=== PATIENT | male | born 1990 | race Caucasian/White ===

== ENCOUNTER 2023-08-11 11:50 | Emergency (ER) | payer BC, SELFPAY ==
[2023-08-11 11:55] VITALS: BP 145/77; PULSE 71; RESP 18; TEMP 36.2; O2SAT 99; BMI 26.4
--- NOTE | 2023-08-11 12:09 | ED.DENTAL1 ---
HPI - Dental/Oral General Chief complaint: Dental/Oral Stated complaint: MOUTH/TOOTH PAIN Time Seen by Provider: 08/11/23 12:06 Source: patient Mode of arrival: walk-in History of Present Illness HPI Narrative: This patient is here complaining of dental pain on his lower left premolar. 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 Fortunately he just got health care benefits and is going to start having all of his teeth extracted. He cannot afford to have all done but he is going to start getting 1 done at a time as cost benefits allow. He is not running a fever. He is otherwise healthy. He is not on any antibiotics. He is not having any difficulty swallowing. There is no swelling of his face yet. He is otherwise no complaints Related Data Home Medications Medication Instructions Recorded Confirmed No Known Home Medications 08/11/23 08/11/23 Allergies Allergy/AdvReac Type Severity Reaction Status Date / Time No Known Drug Allergies Allergy Verified 08/11/23 11:58 PFSH PFSH Social History Smoking status: Current every day smoker Exam Narrative Exam Narrative: Very pleasant young man but has extensive periodontal disease of the upper and lower mandibular and maxillary area. There is no facial swelling. Cranial nerves II through XII are normal. There is no difficulty speech or swallowing. There is no swelling of the floor the mouth. The tooth that is uncomfortable right now is his lower left mandibular premolar. There is no pointing abscess at this time. Constitutional Vital Signs, click to edit/add: Last Vital Signs Temp 97.1 F L 08/11/23 11:55 Pulse 71 08/11/23 11:55 Resp 18 08/11/23 11:55 BP 145/77 H 08/11/23 11:55 Pulse Ox 99 08/11/23 11:55 O2 Del Method Room Air 08/11/23 11:55 Course Vital Signs Vital signs: Vital Signs Temperature 97.1 F L 08/11/23 11:55 Pulse Rate 71 08/11/23 11:55 Respiratory Rate 18 08/11/23 11:55 Blood Pressure 145/77 H 08/11/23 11:55 Pulse Oximetry 99 08/11/23 11:55 Oxygen Delivery Method Room Air 08/11/23 11:55 Temperature 97.1 F L 08/11/23 11:55 Pulse Rate 71 08/11/23 11:55 Respiratory Rate 18 08/11/23 11:55 Blood Pressure 145/77 H 08/11/23 11:55 Pulse Oximetry 99 08/11/23 11:55 Oxygen Delivery Method Room Air 08/11/23 11:55 MDM - Dental/Oral MDM Narrative Medical decision making narrative: Patient with extensive chronic dental problems with 1 tooth that is particularly problematic. Will start him on penicillin dental analgesia and alternate Tylenol with ibuprofen. I will give him a limited dose of [place] he has to follow-up with his dentist to soon as possible Discharge Plan Discharge Chief Complaint: Dental/Oral Clinical Impression: Tooth ache Patient Disposition: Home, Self-Care Time of Disposition Decision: 12:11 Prescriptions / Home Meds: No Action No Known Home Medications Additional Instructions: Pen-Vee K/[place]/alternate with ibuprofen/see dentist NICHOLAS Referrals: Physician,Non-Staff, MD [Primary Care Provider] - 1 week Stand Alone Forms: Portal Instructions
[2023-08-11] MEDS: BENZOCAINE 30 ML, lidocaine HCL 15 ML MM (12:18)
== END 2023-08-11 12:22 | disposition home or self-care (01) ==
PROVIDERS: Emergency Provider Emergency Medicine Emergency Medical Services
DX: K08.89 Other specified disorders of teeth and supporting structures (principal); F17.210 Nicotine dependence, cigarettes, uncomplicated
CPT/HCPCS: 99282

== ENCOUNTER 2024-01-09 04:45 | Emergency (ER) | payer SELFPAY ==
[2024-01-09 04:48] VITALS: BP 126/80; PULSE 67; TEMP 37.1; O2SAT 99
--- OUTSIDE RECORDS SUMMARY | 2024-01-09 04:50 | XMS_ITS ---
Patient Summarization (C-CDA 2.1 CCD) Created on: January 09, 2024 BERNABE CANALES : 1990 Sex: Undifferentiated Author Organization Sample organization Care Team Providers Care Computer Aided Design Drafter Name Role Phone DR JUDY SANCHEZ Primary Care Unavailable MARY ORLANDO Attending Unavailable MARY ORLANDO Consulting Unavailable MARY ORLANDO Admitting Unavailable CORINA PALACIOS Unavailable NO PCP, NO PCP Primary Care Unavailable NAHID GERMAIN Attending Unavailable NO PCP, NO PCP Primary Care Unavailable Encounters Encounter Date Encounter Type Care Provider Facility Start: 11-19-2023 End: 11-19-2023 Emergency department patient visit NO PCP NO PCP [facility] Start: 10-03-2023 End: 10-03-2023 Emergency department patient visit NO PCP NO PCP [facility] Start: 05-23-2022 End: 05-23-[address] DOCTOR SANCHEZ Facility: Payers Date Payer Category Payer Unknown [id number] 1990 Unknown [id number] 1990 Unknown [id number] 1990 Unknown [id number] 1960 Self-pay [id number] Problems Problem Classification Problem Date Documented Da te Episodic/Chronic Nausea and vomiting (2 sources) Vomiting without nausea; Translations: [Vomiting] Onset: 11-19-2023 Episodic Nonspecific chest pain (3 sources) Chest pain, unspecified; Translations: [CHEST PAIN UNSPECIFIED] Onset: 05-23-2022 Episodic Other upper respiratory infections (1 source) Acute upper respiratory infection, unspecified; Translations: [Acute upper respiratory infection, unspecified] Onset: 10-03-2023 Episodic Pleurisy; pneumothorax; pulmonary collapse (1 source) Pleurisy; Translations: [PLEURISY] Onset: 05-26-2022 Episodic Substance-related disorders (1 source) Nicotine dependence, cigarettes, uncomplicated; Translations: [NICOTINE DEPEND CIGARETTES UNCOMP] Onset: 05-26-2022 Chronic Unclassified (1 source) CONTACT W/AND (SUSP) EXPOS COVID-19; Translations: [CONTACT W/AND (SUSP) EXPOS COVID-19] Onset: 05-26-2022 Unclassified (1 source) Cold Like Symptoms Onset: 10-03-2023 Unclassified (1 source) runny nose, cough, diarrhea Onset: 10-03-2023 Results Test Name Value Interpretation Reference Range Facil ity RAPID STREP SCR NURSINGon S. pyogenes Ag EIA Ql (Throat) Negative Normal NEG [facility] Comment on above: Performed By: #### 6 [id number] #### [facility] ([id number]) [address] [place] [id number] RAPID STREP SCR NURSINGon S. pyogenes Ag EIA Ql (Throat) Negative Normal NEG [facility] Comment on above: Performed By: #### 6 [id number] #### [facility] ([id number]) [address] [place] [id number] SARS/FLU A+B/RSV by NAAT/Mol ecularon 10-03-2023 SARS/FLU A+B/RSV by NAAT/Molecular FLU A PCR Negative (qualifier value) FLU B PCR Negative (qualifier value) RSV by PCR Negative (qualifier value) SARS CoV 2 Not detected (qualifier value) NOTE The Xpert Xpress SARS-CoV-2/Flu/RSV Plus test is a rapid, multiplexed real-time RT-PCR test intended for the simultaneous qualitative detection and differentiation of SARS-CoV-2, influenza A, influenza B and respiratory syncytial virus (RSV) viral RNA from individuals suspected of respiratory viral infection consistent with COVID-19 by their healthcare provider. This test has not been validated in asymptomatic patients. The Xpert Xpress SARS-CoV-2 test is intended for use by qualified and trained operators who are performing tests using either [employer] or [employer] systems and is limited to laboratories that meet the CLIA requirements to perform high and moderate complexity tests. The Xpert Xpress SARS-CoV-2/Flu/RSV Plus is only for use under the Food and Drug Administration's Emergency Use Authorization. Results are for the simultaneous detection and differentiation of SARS-CoV-2, influenza A, influenza B and RSV nucleic acids in clinical specimens. SARS-CoV-2, influenza A, influenza B and RSV RNA identified by this test are generally detectable in upper respiratory samples during the acute phase of infection. Positive results are indicative of the presence of the identified virus, but do not rule out bacterial infection or co-infection with other pathogens not detected by this test. Clinical correlation with patient history and other diagnostic information is necessary to determine patient infection status. The agent detected may not be the definite cause of disease. Negative results do not preclude SARS-CoV-2, influenza A, influenza B and RSV infection and should not be used as the sole basis for treatment or other patient management decisions. Negative results must be combined with clinical observations, patient history and epidemiological information. An Invalid result may occur with specimen-associated inhibition unable to be resolved with specimen repeat. Fact Sheet for Healthcare Providers: https://www.fda.gov/m edia/496223/download Fact Sheet for Patients: https://www.fda.gov/m edia/739667/download Normal [facility] Comment on above: Performed By: #### C OVFLR #### [facility] ([id number]) [address] [place] [address], [place] [address] CARDIAC NAZARIO 3-6on 2 CK [Catalytic activity/Vol] 79 U/L Normal 39-308 [facility] Comment on above: Performed By: #### C MREP #### [facility] [address] [place] [id number] [address] Samreen Vo CK.MB [Mass/Vol] 0.51 ng/mL Normal <=3.60 [facility] Comment on above: Performed By: #### C MREP #### [facility] [address] [place], [place] [address] Dr. Samreen Vo HSTROP 4.5 pg/mL Normal 4.0-76.1 [facility] Comment on above: Result Comment: CUT- OFF POINTS HAVE BEEN ESTABLISHED BASED ON THE FOURTH UNIVERSAL DEFINITIONS OF MYOCARDIAL INFARCTION. THE UPPER REFERENCE LIMIT (URL) OF TROPONIN, DEFINED THE 99TH PERCENTILE OF cTnI DISTRIBUTION IN A REFERENCE POPULATION, HAS BEEN CONFIRMED THE DECISION THRESHOLD FOR MA DIAGNOSIS. Performed By: #### C MREP #### [facility] [address] [place] [address] Dr. Samreen Vo CARDIAC NAZARIO ADMITon 022 CK [Catalytic activity/Vol] 85 U/L Normal 39-308 [facility] Comment on above: Performed By: #### C MADM, BMP #### [facility] [address] [place] [address] Dr. Samreen Vo CK.MB [Mass/Vol] 0.57 ng/mL Normal <=3.60 [facility] Comment on above: Performed By: #### C CARLITAM, BMP #### [facility] [address] [place] [address] Dr. Samreen Vo HSTROP <4.0 Normal 4.0-76.1 [facility] Comment on above: Result Comment: CUT- OFF POINTS HAVE BEEN ESTABLISHED BASED ON THE FOURTH UNIVERSAL DEFINITIONS OF MYOCARDIAL INFARCTION. THE UPPER REFERENCE LIMIT (URL) OF TROPONIN, DEFINED THE 99TH PERCENTILE OF cTnI DISTRIBUTION IN A REFERENCE POPULATION, HAS BEEN CONFIRMED THE DECISION THRESHOLD FOR MA DIAGNOSIS. Performed By: #### C MADM, BMP #### [facility] [address] [place] [address] Dr. Samreen Vo ARUN 24 ng/mL Normal 16-96 [facility] Comment on above: Performed By: #### C MADM, BMP #### [facility] [address] [place] [address] Dr. Samreen Vo CBC AUTO DIFFon 05-23-2022 BASO # 0.0 103/ul Normal 0.0-0.1 [facility] Comment on above: Performed By: #### C BC #### [facility] [address] [place] [address] Dr. Samreen Vo Basophils/100 WBC (Bld) 0.5 % Normal 0.2-2.0 [facility] Comment on above: Performed By: #### C BC #### [facility] [address] [place] [address] Dr. Samreen Vo EO # 0.3 103/ul Normal 0.0-0.7 [facility] Comment on above: Performed By: #### C BC #### [facility] [address] [place] [address] Dr. Samreen Vo Eosinophils/100 WBC (Bld) 4.0 % Normal 0.9-7.0 [facility] Comment on above: Performed By: #### C BC #### [facility] [address] [place] [address] Dr. Samreen Vo Erythrocyte distribution width (RBC) [Ratio] 13.1 % Normal 11.0-15.0 [facility] Comment on above: Performed By: #### C BC #### [facility] [address] [place] [address] Dr. Samreen Vo Hematocrit (Bld) [Volume fraction] 38.8 % Critically low 42.0-54.0 [facility] Comment on above: Performed By: #### C BC #### [facility] [address] [place] [address] Dr. Samreen Vo Hemoglobin (Bld) [Mass/Vol] 13.2 g/dL Critically low 14.0-18.0 [facility] Comment on above: Performed By: #### C BC #### [facility] [address] [place] [address] Dr. Samreen Vo IG # 0.02 10e3/ul Normal 0.00-0.03 [facility] Comment on above: Performed By: #### C BC #### [facility] [address] [place] [address] Dr. Samreen Vo IG % 0.2 % Normal 0.0-0.5 [facility] Comment on above: Performed By: #### C BC #### [facility] [address] [place] [address] Dr. Samreen Vo LYMPH # 2.4 103/ul Normal 1.2-3.8 [facility] Comment on above: Performed By: #### C BC #### [facility] [address] [place] [address] Dr. Samreen Vo Lymphocytes/100 WBC (Bld) 29.2 % Normal 20.5-60.0 [facility] Comment on above: Performed By: #### C BC #### [facility] [address] [place] [address] Dr. Samreen Vo MANUAL DIFF REQ NO Normal [facility] Comment on above: Performed By: #### C BC #### [facility] [address] [place] [address] Dr. Samreen Vo MCH (RBC) [Entitic mass] 31.6 pg Normal 25.9-34.0 [facility] Comment on above: Performed By: #### C BC #### [facility] [address] [place] [address] Dr. Samreen Vo MCHC (RBC) [Mass/Vol] 34.0 g/dL Normal 29.9-35.2 [facility] Comment on above: Performed By: #### C BC #### [facility] [address] [place] [address] Dr. Samreen Vo MCV (RBC) [Entitic vol] 92.8 fL Normal 80.0-94.0 [facility] Comment on above: Performed By: #### C BC #### [facility] [address] [place] [address] Dr. Samreen Vo MONO # 0.9 103/ul Critically high 0.3-0.8 [facility] Comment on above: Performed By: #### C BC #### [facility] [address] [place] [address] Dr. Samreen Vo Monocytes/100 WBC (Bld) 10.9 % Normal 1.7-12.0 [facility] Comment on above: Performed By: #### C BC #### [facility] [address] [place] [address] Dr. Samreen Vo NEUT # 4.5 103/ul Normal 1.4-6.5 [facility] Comment on above: Performed By: #### C BC #### [facility] [address] [place] [address] [address] Samreen Vo Neutrophils/100 WBC (Bld) 55.2 % Normal 43.0-75.0 [facility] Comment on above: Performed By: #### C BC #### [facility] [address] [place] [address] [address] Samreen Vo Platelet mean volume (Bld) [Entitic vol] 11.5 fL Normal 9.5-13.5 [facility] Comment on above: Performed By: #### C BC #### [facility] [address] [place] [address] [address] Samreen Vo PLT 179 103/ul Normal 150-450 [facility] Comment on above: Performed By: #### C BC #### [facility] [address] [place] [address] Dr. Samreen Vo RBC 4.18 106/ul Critically low 4.70-6.10 [facility] Comment on above: Performed By: #### C BC #### [facility] [address] [place] [address] [address] Samreen Vo WBC 8.1 103/ul Normal 4.0-11.0 [facility] Comment on above: Performed By: #### C BC #### [facility] [address] [place] [address] Dr. Samreen Vo Covid-19 PCR (CVDTB)on 05-09 SARS-CoV-2 (COVID-19) RNA GABI+probe Ql (Unsp spec) Not detected Normal NOT DETECTED [facility] Comment on above: Result Comment: This test is not yet approved or cleared by the [place] FDA. When there are no FDA-approved or cleared tests available, and other criteria are met, FDA can make tests available under an emergency access mechanism called an Emergency Use Authorization (EUA). The EUA for this test is supported by the [place] of Health and Human Service's (HHS's) declaration that circumstances exist to justify the emergency use of in vitro diagnostics for the detection and/or diagnosis of the virus that causes COVID-19. This EUA will remain in effect (meaning this test can be used) for the duration of the COVID-19 declaration justifying emergency of IVDs, unless it is terminated or revoked by FDA (after which the test may no longer be used). When diagnostic testing is negative, the possibility of a false negative should be considered in the context of a patient's recent exposures and the presence of clinical signs and symptoms consistent with SARS-CoV-2. Performed By: #### C VDTBH #### [facility] [address] [place] [address] Dr. Samreen Vo D-DIMERon 05-23-2022 D-DIMER <0.19 Normal <=0.59 [facility] Comment on above: Performed By: #### D DIM #### [facility] [address] [place] [address] Dr. Samreen Vo D-DIMER COMMENTS SEE BELOW Normal [facility] Comment on above: Result Comment: Incr eases in D-Dimer concentration observed with thromboembolic events can be variable due to localization, size, and age of the thrombus. Therefore, a thromboembolic event cannot be diagnosed with certainty on the basis of the reference range. D-Dimers may also be elevated for a variety of disorders including: advanced age, , coronary disease, cancer, liver disease, infection, inflammation, hematoma, DIC, trauma, post-surgery, diabetes, thrombolytic or anticoagulant therapy, stress, and generalized hospitalization. Performed By: #### D DIM #### [facility] [address] [place] [address] Dr. Samreen Vo INFLUENZA A AND B AGon 05-23 INFLUANEGH SEE BELOW Normal [facility] Comment on above: Result Comment: Nega tive for Flu A protein angiten. Infection due to Flu A cannot be ruled out. Flu A angiten in the sample may be below the detection limit of the test. Performed By: #### R SV, INFLUAB #### [facility] [address] [place] [address] Dr. Samreen Vo INFLUBNEG SEE BELOW Normal [facility] Comment on above: Result Comment: Nega tive for Flu B protein antigen. Infection due to Flu B cannot be ruled out. Flu B antigen in the sample may be below the detection limit of the test. Performed By: #### R SV, INFLUAB #### [facility] [address] [place] [address] [address] Samreen Vo INFLUENZA A AG Negative Normal NEGATIVE SEE COMMENT [facility] Comment on above: Performed By: #### R SV, INFLUAB #### [facility] [address] [place] [address] Dr. Samreen Vo INFLUENZA B AG Negative Normal NEGATIVE SEE COMMENT [facility] Comment on above: Performed By: #### R SV, INFLUAB #### [facility] [address] [place] [address] Dr. Samreen Vo INTERNAL CONTROLS Within Normal Limits Normal Wi thin Normal Limits [facility] Comment on above: Performed By: #### R SV, INFLUAB #### [facility] [address] [place] [address] Dr. Samreen Vo PROF CHEM 8 (BAS METB)on Anion gap [Moles/Vol] 11.8 mmol/L Normal [facility] Comment on above: Performed By: #### C MADM, BMP #### [facility] [address] [place] [address] Dr. Samreen Vo Calcium [Mass/Vol] 8.8 mg/dL Normal 8.5-10.1 [facility] Comment on above: Performed By: #### C MADM, BMP #### [facility] [address] [place] [address] Dr. Samreen Vo Chloride [Moles/Vol] 102 mmol/L Normal 98-107 [facility] Comment on above: Performed By: #### C MADM, BMP #### [facility] [address] [place] [address] Dr. Samreen Vo CO2 [Moles/Vol] 29.3 mmol/L Normal 21.0-32.0 [facility] Comment on above: Performed By: #### C MADM, BMP #### [facility] [address] [place] [address] Dr. Samreen Vo Creatinine [Mass/Vol] 0.69 mg/dL Critically low 0.70-1.30 [facility] Comment on above: Performed By: #### C MADM, BMP #### [facility] [address] [place] [address] [address] Samreen Vo EGFR-AF UGANDAN >60 Normal >=60 [facility] Comment on above: Performed By: #### C MADM, BMP #### [facility] [address] [place] [address] [address] Samreen Vo EGFR-NON AF UGANDAN >60 Normal >=60 [facility] Comment on above: Performed By: #### C MADM, BMP #### [facility] [address] [place] [address] [address] Samreen Vo Glucose [Mass/Vol] 96 mg/dL Normal 74-106 [facility] Comment on above: Performed By: #### C MADM, BMP #### [facility] [address] [place] [address] Dr. Samreen Vo Potassium [Moles/Vol] 4.1 mmol/L Normal 3.5-5.1 [facility] Comment on above: Performed By: #### C MADM, BMP #### [facility] [address] [place] [address] [address] Samreen Vo Sodium [Moles/Vol] 139 mmol/L Normal 136-145 [facility] Comment on above: Performed By: #### C MADM, BMP #### [facility] [address] [place] [address] [address] Samreen Vo Urea nitrogen [Mass/Vol] 12.0 mg/dL Normal 7.0-18.0 [facility] Comment on above: Performed By: #### C MADM, BMP #### [facility] [address] [place] [address] [address] Samreen Vo Urea nitrogen/Creatinin e [Mass ratio] 17.4 mg/mg Normal [facility] Comment on above: Performed By: #### C MADM, BMP #### [facility] [address] [place] [address] [address] Samreen Vo RSVon 05-23-2022 RSV AG Negative Normal NEGATIVE [facility] Comment on above: Performed By: #### R SV, INFLUAB #### [facility] [address] [place] [address] [address] Samreen Vo XR CHEST 1 Von 05-23-2022 XR CHEST 1 V EXAM: XR CHEST 1 V HISTORY: CHEST PAIN, UNSPECIFIED COMPARISON: None. TECHNIQUE: Chest single view. FINDINGS: Lines/tubes/devices: EKG leads overlie the chest. Cardiomediastinum: Cardiac silhouette appears normal in size. Unremarkable mediastinal silhouette. Vasculature: No increased pulmonary vasculature. Lungs/pleura: No consolidation, sizeable effusion, or visible pneumothorax. Bones/soft tissues: Bony thorax appears grossly intact as seen. IMPRESSION: No acute cardiopulmonary findings. Electronically authenticated by: CORINA PALACIOS Date: 2022-05-23 01:04 Normal [facility] Summary Purpose Family History No Family History Records FoundNo Family History Records Found Advance Directives No Advanced Directives Records FoundNo Advanced Directives Records Found Additional Source Comments (unrecognized sect ion and content) No Status Records FoundNo Status Records Found INFORMATION SOURCE (unrecogn ized section and content) DATE CREATED AUTHOR 05/30/2022 [facility] DATE CREATED AUTHOR AUTHOR'S ORGANIZ ATION 11/20/2023 [facility] FOR RECORDS PERTAINING TO PATIENTS WHO ARE OR HAVE BEEN ENROLLED IN A CHEMICAL DEPENDENCY/SUBSTANCEABUSE PROGRAM, SOME INFORMATION MAY BE OMITTED. This clinical summary was aggregated from multiple sources. Caution should be exercised in using it in the provision of clinical care. This summary normalizes information from multiple sources, and as a consequence, information in this document may materially change the coding, format and clinical context of patient data. In addition, data may be omitted in some cases. CLINICAL DECISIONS SHOULD BE BASED ON THE PRIMARY CLINICAL RECORDS. [facility]. provides no warranty or guarantee of the accuracy or completeness of information in this document.
--- NOTE | 2024-01-09 04:56 | ED_ITS ---
HPI - Dental/Oral General Chief complaint: Dental/Oral Stated complaint: L DENTAL PAIN Time Seen by Provider: 01/09/24 04:47 Source: patient Mode of arrival: walk-in Limitations: no limitations History of Present Illness HPI Narrative: 33-year-old male presents to the emergency department for tooth ache. He is complaining of pain primarily to the left upper dentition. He knows he has bad teeth and that they need to be extracted. He has had most of his teeth extracted already. The pain is moderate and continuous and aching. Related Data Previous Rx's ?Medication ?Instructions ?Recorded acetaminophen 300 mg-codeine 30 mg 1 tab PO Q6H PRN pain 5 days #20 01/09/24 tablet tabs penicillin V potassium 250 mg 250 mg PO QID 10 days #40 tabs 01/09/24 tablet Allergies Allergy/AdvReac Type Severity Reaction Status Date / Time No Known Drug Allergies Allergy Verified 01/09/24 04:51 Review of Systems ROS Narrative A ten point review of systems is negative except as noted above. PFSH PFSH Social History Smoking status: Current every day smoker Exam Narrative Exam Narrative: Nurses note and vital signs reviewed and patient is not hypoxic. General: The patient appears well and in no apparent distress. Patient is resting comfortably on cart. Skin: Warm, dry, no pallor noted. There is no rash noted. Head: Normocephalic, atraumatic Eye: Normal conjunctiva, no drainage Ears, Nose, Mouth, and Throat: oral mucosa is moist. Nares patent. Most teeth have already been extracted. The ones remaining in the left upper dentition are blackened and eroded down to the gum level. No bleeding or pus present. No swelling to the floor of his mouth. Cardiovascular: Regular Rate and Rhythm Respiratory: Patient is in no distress, no accessory muscle use, lungs are eula r to auscultation, no wheezing, rales or rhonchi Back: non-tender GI: Soft and nontender Musculoskeletal: The patient has no evidence of calf tenderness, no pitting edema, symmetrical pulses noted bilaterally Neurological: A&O, normal speech Psychiatric: Cooperative Constitutional Vital Signs, click to edit/add: Last Vital Signs Temp 98.7 F 01/09/24 04:48 Pulse 67 01/09/24 04:48 Resp 18 01/09/24 04:48 BP 126/80 01/09/24 04:48 Pulse Ox 99 01/09/24 04:48 O2 Del Method Room Air 01/09/24 04:48 Course Vital Signs Vital signs: Vital Signs Temperature 98.7 F 01/09/24 04:48 Pulse Rate 67 01/09/24 04:48 Respiratory Rate 18 01/09/24 04:48 Blood Pressure 126/80 01/09/24 04:48 Pulse Oximetry 99 01/09/24 04:48 Oxygen Delivery Method Room Air 01/09/24 04:48 Temperature 98.7 F 01/09/24 04:48 Pulse Rate 67 01/09/24 04:48 Respiratory Rate 18 01/09/24 04:48 Blood Pressure 126/80 01/09/24 04:48 Pulse Oximetry 99 01/09/24 04:48 Oxygen Delivery Method Room Air 01/09/24 04:48 MDM - Dental/Oral MDM Narrative Medical decision making narrative: He was given antibiotics and pain medication and will follow-up with dentistry. Treatment diagnosis and follow-up were discussed with the patient. Differential Diagnosis Differential diagnosis: Likely gingival abscess, dental caries and toothache Discharge Plan Discharge Stand Alone Forms: Portal Instructions Chief Complaint: Dental/Oral Clinical Impression: Dental caries, Tooth ache Patient Disposition: Home, Self-Care Time of Disposition Decision: 04:54 Condition: Good Mode of Transportation: Private Vehicle Prescriptions / Home Meds: New acetaminophen-codeine 300-30 mg tablet 1 tab PO Q6H PRN (Reason: pain) 5 Days Qty: 20 0RF penicillin V potassium 250 mg tablet 250 mg PO QID 10 Days Qty: 40 0RF Print Language: Taiwanese Instructions: Toothache (ED) Referrals: Physician,Non-Staff, MD [Primary Care Provider] - 1 week
[2024-01-09] MEDS: BENZOCAINE 30 ML, lidocaine HCL 15 ML MM (05:15)
[2024-01-09] MEDS: ACETAMINOPHEN 300 MG/ 30 MG CODEINE TABLET 1 TAB PO (05:16)
[2024-01-09] MEDS: PENICILLIN V POTASSIUM 250 MG TABLET 500 MG PO (05:16)
[2024-01-09 05:20] VITALS: BP 124/76; PULSE 70; O2SAT 97
== END 2024-01-09 05:20 | disposition home or self-care (01) ==
PROVIDERS: Emergency Provider Emergency Medicine
DX: K02.9 Dental caries, unspecified (principal); K08.89 Other specified disorders of teeth and supporting structures; F17.210 Nicotine dependence, cigarettes, uncomplicated
CPT/HCPCS: 99283

== ENCOUNTER 2024-04-07 22:57 | Emergency (ER) | payer SELFPAY ==
--- OUTSIDE RECORDS SUMMARY | 2024-04-07 23:05 | XMS_ITS | CCD ---
Author Organization [facility] Care Team Providers Care Receivable Clerk Name Role Phone DR JUDY SANCHEZ Primary Care Unavailable MARY ORLANDO Attending Unavailable MARY ORLANDO Consulting Unavailable MARY ORLANDO Admitting Unavailable CORINA PALACIOS Consulting Unavailable NO PCP, NO PCP Primary Care Unavailable NAHID GERMAIN Attending Unavailable NO PCP, NO PCP Primary Care Unavailable Unavailable Primary Care Provider Unavailabl e Problems Problem Classification Problem Date Documented Da te Episodic/Chronic Administrative/social admission (2 sources) Patient encounter status; Translations: [Encounter for blood-alcohol and blood-drug test] 03-26-2024 Episodic Nausea and vomiting (2 sources) Vomiting without [...] Ag EIA Ql (Throat) Negative Normal NEG [facility] Comment on above: Performed By: #### 6 556-5 #### [facility] ([id number]) [address], [place] [address] RAPID STREP SCR NURSINGon S. pyogenes Ag EIA Ql (Throat) Negative Normal NEG [facility] Comment on above: Performed By: #### 6 556-5 #### [facility] ([id number]) [address] [place] [address] SARS/FLU A+B/RSV by NAAT/Mol ecularon 10-03-2023 SARS/FLU [...] operators who are performing tests using either Gene[employer] DX or [employer] systems and is limited to laboratories that [...] repeat. Fact Sheet for Healthcare Providers: https://www.fda.gov/m edia/799792/download Fact Sheet for Patients: https://www.fda.gov/m edia/960054/download Normal [facility] Comment on above: Performed By: #### C OVFLR #### [facility] ([id number]) [address] [place] [address], [place] [address] CARDIAC NAZARIO 3-6on 2 CK [Catalytic activity/Vol] 79 U/L Normal 39-308 [facility] Comment on above: Performed By: #### C MREP #### [facility] [address] [place] [address] Dr. Samreen Vo CK.MB [Mass/Vol] 0.51 ng/mL Normal <=3.60 [facility] Comment on above: Performed By: #### C MREP #### [facility] [address] [place] [address] Dr. Samreen Vo HSTROP 4.5 pg/mL Normal 4.0-76.1 [facility] Comment on above: Result Comment: CUT- OFF POINTS HAVE BEEN ESTABLISHED BASED ON THE FOURTH UNIVERSAL DEFINITIONS OF MYOCARDIAL INFARCTION. THE UPPER REFERENCE LIMIT (URL) OF TROPONIN, DEFINED THE 99TH PERCENTILE OF cTnI DISTRIBUTION IN A REFERENCE POPULATION, HAS BEEN CONFIRMED THE DECISION THRESHOLD FOR WI DIAGNOSIS. Performed By: #### C MREP #### [facility] [address] [address] [address] Samreen Vo CARDIAC NAZARIO ADMITon 022 CK [Catalytic activity/Vol] 85 U/L Normal 39-308 [facility] Comment on above: Performed By: #### C MADM, BMP #### [facility] [address] [address] [address] Samreen Vo CK.MB [Mass/Vol] 0.57 ng/mL Normal <=3.60 [facility] Comment on above: Performed By: #### C MADM, BMP #### [facility] [address] [place] [address] Dr. Samreen Vo HSTROP <4.0 Normal 4.0-76.1 [facility] Comment on above: Result Comment: CUT- OFF POINTS HAVE BEEN ESTABLISHED BASED ON THE FOURTH UNIVERSAL DEFINITIONS OF MYOCARDIAL INFARCTION. THE UPPER REFERENCE LIMIT (URL) OF TROPONIN, DEFINED THE 99TH PERCENTILE OF cTnI DISTRIBUTION IN A REFERENCE POPULATION, HAS BEEN CONFIRMED THE DECISION THRESHOLD FOR WI DIAGNOSIS. Performed By: #### C MADM, BMP #### [facility] [address] [place] [address] Dr. Samreen Vo ARUN 24 ng/mL Normal 16-96 [facility] Comment on above: Performed By: #### C CARLITAM, BMP #### [facility] [address] [place] [address] Dr. Samreen Vo CBC AUTO DIFFon 05-23-2022 BASO # 0.0 103/ul Normal 0.0-0.1 [facility] Comment on above: Performed By: #### C BC #### [facility] [address] [place] [address] Dr. Samreen Vo Basophils/100 WBC (Bld) 0.5 % Normal 0.2-2.0 [facility] Comment on above: Performed By: #### C BC #### [facility] [address] [place] [address] Dr. Samreen Vo EO # 0.3 103/ul Normal 0.0-0.7 [facility] Comment on above: Performed By: #### C BC #### [facility] [address] [place] [address] Dr. Samreen Vo Eosinophils/100 WBC (Bld) 4.0 % Normal 0.9-7.0 [facility] Comment on above: Performed By: #### C BC #### [facility] [address] [place] [address] Dr. Samreen Vo Erythrocyte distribution width (RBC) [Ratio] 13.1 % Normal 11.0-15.0 [facility] Comment on above: Performed By: #### C BC #### [facility] [address] [place] [address] Dr. Samreen Vo Hematocrit (Bld) [Volume fraction] 38.8 % Critically low 42.0-54.0 [facility] Comment on above: Performed By: #### C BC #### [facility] [address] [place] [address] Dr. Samreen Vo Hemoglobin (Bld) [Mass/Vol] 13.2 g/dL Critically low 14.0-18.0 [facility] Comment on above: Performed By: #### C BC #### [facility] [address] [place] [address] Dr. Samreen Vo IG # 0.02 10e3/ul Normal 0.00-0.03 [facility] Comment on above: Performed By: #### C BC #### [facility] [address] [place] [address] Dr. Samreen Vo IG % 0.2 % Normal 0.0-0.5 [facility] Comment on above: Performed By: #### C BC #### [facility] [address] [place] [address] Dr. Samreen Vo LYMPH # 2.4 103/ul Normal 1.2-3.8 [facility] Comment on above: Performed By: #### C BC #### [facility] [address] [place] [address] Dr. Samreen Vo Lymphocytes/100 WBC (Bld) 29.2 % Normal 20.5-60.0 [facility] Comment on above: Performed By: #### C BC #### [facility] [address] [place] [address] Dr. Samreen Vo MANUAL DIFF REQ NO Normal [facility] Comment on above: Performed By: #### C BC #### [facility] [address] [place] [address] Dr. Samreen Vo MCH (RBC) [Entitic mass] 31.6 pg Normal 25.9-34.0 [facility] Comment on above: Performed By: #### C BC #### [facility] [address] [address] [address] Samreen Vo MCHC (RBC) [Mass/Vol] 34.0 g/dL Normal 29.9-35.2 [facility] Comment on above: Performed By: #### C BC #### [facility] [address] [address] [address] Samreen Vo MCV (RBC) [Entitic vol] 92.8 fL Normal 80.0-94.0 [facility] Comment on above: Performed By: #### C BC #### [facility] [address] [address] [address] Samreen Vo MONO # 0.9 103/ul Critically high 0.3-0.8 [facility] Comment on above: Performed By: #### C BC #### [facility] [address] [place] [address] Dr. Samreen Vo Monocytes/100 WBC (Bld) 10.9 % Normal 1.7-12.0 [facility] Comment on above: Performed By: #### C BC #### [facility] [address] [address] [address] Samreen Vo NEUT # 4.5 103/ul Normal 1.4-6.5 [facility] Comment on above: Performed By: #### C BC #### [facility] [address] [place] [address] Dr. Samreen Vo Neutrophils/100 WBC (Bld) 55.2 % Normal 43.0-75.0 [facility] Comment on above: Performed By: #### C BC #### [facility] [address] [address] [address] Samreen Vo Platelet mean volume (Bld) [Entitic vol] 11.5 fL Normal 9.5-13.5 [facility] Comment on above: Performed By: #### C BC #### [facility] [address] [address] [address] Samreen Vo PLT 179 103/ul Normal 150-450 [facility] Comment on above: Performed By: #### C BC #### [facility] [address] [address] [address] Samreen Vo RBC 4.18 106/ul Critically low 4.70-6.10 [facility] Comment on above: Performed By: #### C BC #### [facility] [address] [place], [place] [id number] Dr. Samreen Vo WBC 8.1 103/ul Normal 4.0-11.0 [facility] Comment on above: Performed By: #### C BC #### [facility] [address] [place] [address] Dr. Samreen Vo Cov[facility] 05-09 SARS-CoV-2 (COVID-19) RNA GABI+probe Ql (Unsp spec) Not detected Normal NOT DETECTED [facility] Comment on above: Result Comment: This test is not yet approved or cleared by the [place] FDA. When there are no FDA-approved or cleared tests available, and other criteria are met, FDA can make tests available under an emergency access mechanism called an Emergency Use Authorization (EUA). The EUA for this test is supported by the [place] of Health and Human Service's (HHS's) declaration [...] SARS-CoV-2. Performed By: #### C VDTBH #### [facility] [address] [place] [address] Dr. Samreen Vo D-DIMERon 05-23-2022 D-DIMER <0.19 Normal <=0.59 [facility] Comment on above: Performed By: #### D DIM #### [facility] [address] [place] [address] Dr. Samreen Vo D-DIMER COMMENTS SEE BELOW Normal [facility] Comment on above: Result Comment: Incr [...] hospitalization. Performed By: #### D DIM #### [facility] [address] [place] [address] Dr. Samreen Vo INFLUENZA A AND B AGon 05-23 [facility] SEE BELOW Normal [facility] Comment on above: Result Comment: Nega tive for Flu A protein angiten. Infection due to Flu A cannot be ruled out. Flu A angiten in the sample may be below the detection limit of the test. Performed By: #### R SV, INFLUAB #### [facility] [address] [place] [address] Dr. Samreen Vo INFLUBNEGH SEE BELOW Normal [facility] Comment on above: Result Comment: Nega tive for Flu B protein antigen. Infection due to Flu B cannot be ruled out. Flu B antigen in the sample may be below the detection limit of the test. Performed By: #### R SV, INFLUAB #### [facility] [address] [place] [address] Dr. Samreen Vo INFLUENZA A AG Negative Normal NEGATIVE SEE COMMENT [facility] Comment on above: Performed By: #### R SV, INFLUAB #### [facility] [address] [place] [address] Dr. Samreen Vo INFLUENZA B AG Negative Normal NEGATIVE SEE COMMENT [facility] Comment on above: Performed By: #### R SV, INFLUAB #### [facility] [address] [place] [address] Dr. Samreen Vo INTERNAL CONTROLS Within Normal Limits Normal Wi thin Normal Limits [facility] Comment on above: Performed By: #### R SV, INFLUAB #### [facility] [address] [address] [address] Samreen Vo PROF CHEM 8 (BAS METB)on Anion gap [Moles/Vol] 11.8 mmol/L Normal [facility] Comment on above: Performed By: #### C MADM, BMP #### [facility] [address] [place] [address] Dr. Samreen Vo Calcium [Mass/Vol] 8.8 mg/dL Normal 8.5-10.1 [facility] Comment on above: Performed By: #### C MADM, BMP #### [facility] [address] [place] [address] Dr. Samreen Vo Chloride [Moles/Vol] 102 mmol/L Normal 98-107 [facility] Comment on above: Performed By: #### C MADM, BMP #### [facility] [address] [place] [address] Dr. Samreen Vo CO2 [Moles/Vol] 29.3 mmol/L Normal 21.0-32.0 [facility] Comment on above: Performed By: #### C MADM, BMP #### [facility] [address] [place] [address] Dr. Samreen Vo Creatinine [Mass/Vol] 0.69 mg/dL Critically low 0.70-1.30 [facility] Comment on above: Performed By: #### C CARLITAM, BMP #### [facility] [address] [place] [address] Dr. Samreen Vo EGFR-AF CHADIAN >60 Normal >=60 [facility] Comment on above: Performed By: #### C MADM, BMP #### [facility] [address] [place] [address] Dr. Samreen Vo EGFR-NON AF CHADIAN >60 Normal >=60 [facility] Comment on above: Performed By: #### C MADM, BMP #### [facility] [address] [place] [address] Dr. Samreen Vo Glucose [Mass/Vol] 96 mg/dL Normal 74-106 [facility] Comment on above: Performed By: #### C MADM, BMP #### [facility] [address] [address] [address] Samreen Vo Potassium [Moles/Vol] 4.1 mmol/L Normal 3.5-5.1 [facility] Comment on above: Performed By: #### C MADM, BMP #### [facility] [address] [address] [address] Samreen Vo Sodium [Moles/Vol] 139 mmol/L Normal 136-145 [facility] Comment on above: Performed By: #### C MADM, BMP #### [facility] [address] [address] [address] Samreen Vo Urea nitrogen [Mass/Vol] 12.0 mg/dL Normal 7.0-18.0 [facility] Comment on above: Performed By: #### C MADM, BMP #### [facility] [address] [place] [address] Dr. Samreen Vo Urea nitrogen/Creatinin e [Mass ratio] 17.4 mg/mg Normal [facility] Comment on above: Performed By: #### C MADM, BMP #### [facility] [address] [address] [address] Samreen Vo RSVon 05-23-2022 RSV AG Negative Normal NEGATIVE [facility] Comment on above: Performed By: #### R SV, INFLUAB #### [facility] [address] [place] [address] Dr. Samreen Vo XR CHEST 1 Von [...] by: CORINA PALACIOS Date: 2022-05-23 01:04 Normal [facility] Encounters Encounter Date Encounter Type Care Provider Facility Start: 03-24-2024 End: 03-24-2024 ambulatory Not Available Start: 03-24-2024 End: 03-24-2024 Patient encounter procedure Mal Carl DO Work Phone: [facility] Comment on above: Encounter for drug s creening Start: 11-19-2023 End: 11-19-2023 Emergency department patient visit NO PCP NO PCP [facility] Start: 10-03-2023 End: 10-03-2023 Emergency department patient visit NO PCP NO PCP [facility] Start: 05-23-2022 End: 05-23-[address] [facility] Facility: Payers Date Payer Category Payer Unknown [id number] 1990 Unknown [id number] 1990 Unknown [id number] 1989 Unknown [id number] 1960 Self-pay [id number] Social History Date Type Detail Facility Tobacco smoking stat [facility] Tobacco smoking consumption unknown [facility] Start: 1990 Sex assigned at Not on file [facility] Gender identity Not on file [facility] History of Present illness Narrative 03-24-2024 Zaira Limon LPN - 03/24/2024 2:20 PM EDT Note Date & Type Note Facility 03-24-2024 History of Presen t illness Narrative Pt presents today for a pre-employment drug screen for [employer]. Pt verified by photo ID. documented in this encounter [facility] Evaluation note Note Date & Type Note Facility Evaluation note Diagnosis Encounter for drug screening documented in this encounter [facility] Summary Purpose Family History No Family History Records FoundNo Family History Records FoundNo Family History Records Found Advance Directives No Advanced Directives Records FoundNo Advanced Directives Records FoundNo Advanced Directives Records Found Additional Source Comments (unrecognized sect ion and content) No Status Records FoundNo Status Records FoundNo Status Records Found INFORMATION SOURCE (unrecogn ized section and content) DATE CREATED AUTHOR 05/30/2022 [facility] DATE CREATED AUTHOR AUTHOR'S ORGANIZ ATION 11/20/2023 [facility] DATE CREATED AUTHOR AUTHOR'S ORGANIZ ATION 03/27/2024 [facility] FOR RECORDS PERTAINING TO PATIENTS WHO ARE [...] BE BASED ON THE PRIMARY CLINICAL RECORDS. [facility] [employer] [facility]. provides no warranty or guarantee of the accuracy or completeness of information in this document.
[2024-04-07 23:27] VITALS: BP 117/72; PULSE 60; TEMP 36.9; O2SAT 99; BMI 25.1
[2024-04-08 00:46] VITALS: BP 128/75; PULSE 59; TEMP 36.5; O2SAT 100
--- NOTE | 2024-04-08 01:06 | XR_ITS ---
The [address] [address] Patient Name: BERNABE CANALES MRN: [id number] date: 1990 Sex: M Assigned Patient Location: ER Current Patient Location: ER Accession/Order Number: [id number] Exam Date: 04/08/2024 01:36 Report Date: 04/08/2024 02:51 At the request of: MARY ORLANDO Procedure: XR chest 1V EXAMINATION:XR chest 1V INDICATION:chills COMPARISON:05/23/2022 TECHNIQUE:A single frontal view of the chest is submitted. FINDINGS: The cardiomediastinal silhouette is not enlarged. The pulmonary vascularity is within normal limits. The lungs are clear based on chest radiography. There is no costophrenic angle blunting. XR/XR chest 1V IMPRESSION: Unremarkable plain film examination of the chest. Electronically authenticated by: MANDEEP WILLAMS Date: 04/08/2024 02:51
--- NOTE | 2024-04-08 01:07 | ED_ITS ---
HPI HPI - General Adult General Chief complaint: Fever Stated complaint: HOT FLASHES Time Seen by Provider: 04/08/24 01:03 Source: patient Mode of arrival: walk-in Limitations: no limitations History of Present Illness HPI narrative: patient presents with one night complaint of chills and sweats. Mild cough. Not short of breath. came here before going to work. Related Data Allergies Allergy/AdvReac Type Severity Reaction Status Date / Time No Known Drug Allergies Allergy Verified 01/09/24 04:51 Opioid HPI Opioid Management Most Recent Opioid Data: Last Pain Scale 8 01/09/24 05:16 01/09/24 Review of Systems ROS Status of ROS 10 or more systems reviewed and unremark able except as noted in history and below PFSH PFS Social History Smoking status: Current every day smoker Little interest or pleasure in doing things: not at all Feeling down, depressed, or hopeless: not at all Exam Constitutional Vital Signs, click to edit/add: Last Vital Signs Temp 97.7 F 04/08/24 00:46 Pulse 59 L 04/08/24 00:46 Resp 18 04/08/24 00:46 BP 128/75 04/08/24 00:46 Pulse Ox 100 04/08/24 00:46 Common normals: no apparent distress, average body habitus, oriented x3, no limitations, healthy appearing, alert and well nourished [facility] Common normals: normocephalic and head/scalp atraumatic Eye Common normals: PERRL, EOMs intact bilaterally and conjunctivae normal Respiratory Common normals: normal respiratory effort, no retractions, no use of accessory muscles and clear to auscultation bilaterally Cardio Common normals: regular rate, regular rhythm, S1 normal heart sound and S2 normal heart sound GI Common normals: Normal to inspection, nondistended, normoactive bowel sounds present, soft to palpation and non-tender Extremity Common normals: normal to inspection and full ROM Neuro Common normals: oriented x3, CN's II-XII intact bilaterally, moves all extremities and no focal motor deficits Psych Appearance: grossly normal Course Vital Signs Vital signs: Vital Signs Temperature 98.5 F 04/07/24 23:27 Pulse Rate 60 04/07/24 23:27 Respiratory Rate 19 04/07/24 23:27 Blood Pressure 117/72 04/07/24 23:27 Pulse Oximetry 99 04/07/24 23:27 Temperature 97.7 F 04/08/24 00:46 Pulse Rate 59 L 04/08/24 00:46 Respiratory Rate 18 04/08/24 00:46 Blood Pressure 128/75 04/08/24 00:46 Pulse Oximetry 100 04/08/24 00:46 Medical Decision Making MDM Narrative Medical decision making narrative: patient presents with what appears to be a viral illness. labs, swabs and xrays ordered Medical Records Medical records narrative: presents with viral symptoms of chills and feeing warm with mild cough. not short of breath. covid and influeza neg. cxray clear. labs unremarkable except for mild elevation glucose. Patient provided a work note and discharged home Lab Data Labs: Lab Results 04/08/24 Range/Units 01:27 WBC 7.1 (4.0-11.0) 10^3/uL RBC 4.15 L (4.70-6.10) 10^6/uL Hgb 13.2 L (14.0-18.0) g/dL Hct 38.1 L (42.0-54.0) % MCV 91.8 (80.0-94.0) fL MCH 31.8 (25.9-34.0) pg MCHC 34.6 (29.9-35.2) g/dL RDW 12.6 (11.0-15.0) % Plt Count 160 (150-450) 10^3/uL MPV 10.9 (9.5-13.5) fL Neut % (Auto) 45.5 (43.0-75.0) % Lymph % (Auto) 36.6 (20.5-60.0) % [place] % (Auto) 13.2 H (1.7-12.0) % Eos % (Auto) 3.6 (0.9-7.0) % Baso % (Auto) 0.8 (0.2-2.0) % Neut # (Auto) 3.2 (1.4-6.5) 10^3/uL Lymph # (Auto) 2.6 (1.2-3.8) 10^3/uL [place] # (Auto) 0.9 H (0.3-0.8) 10^3/uL Eos # (Auto) 0.3 (0.0-0.7) 10^3/uL Baso # (Auto) 0.1 (0.0-0.1) 10^3/uL Abs Immat Gran (auto) 0.02 (0.00-0.03) 10^3/uL Imm/Tot Granulo (auto) 0.3 (0.0-0.5) % Sodium 140 (136-145) mmol/L Potassium 3.5 (3.5-5.1) mmol/L Chloride 104 (98-107) mmol/L Carbon Dioxide 26.9 (21.0-32.0) mmol/L Anion Gap 12.6 BUN 9.0 (7.0-18.0) mg/dL Creatinine 0.82 (0.70-1.30) mg/dL Est GFR ( Amer) >60 (>=60 mL/min/1.73m^2) Est GFR (Non-Af Amer) >60 (>=60 mL/min/1.73m^2) BUN/Creatinine Ratio 11.0 Glucose 141 H (74-106) mg/dL Calcium 9.0 (8.5-10.1) mg/dL Influenza Type A Ag Negative Influenza Type B Ag Negative SARS-CoV-2 Ag (CV2AG) Negative (NEGATIVE) Discharge Plan Discharge Chief Complaint: Fever Clinical Impression: Viral infection Patient Disposition: Home, Self-Care Print Language: Khmer Instructions: Viral Syndrome (ED) Referrals: Physician,Non-Staff, [Primary Care Provider] - 1 week
[2024-04-08 01:48] LABS: Basophils Absolute Auto 0.1 10^3/uL (0.0-0.1); Basophils Percent Auto 0.8 % (0.2-2.0); Eosinophils Absolute Auto 0.3 10^3/uL (0.0-0.7); Eosinophils Percent Auto 3.6 % (0.9-7.0); Hematocrit 38.1 % (42.0-54.0); Hemoglobin 13.2 g/dL (14.0-18.0); Immature Granulocytes Abs Auto 0.02 10^3/uL (0.00-0.03); Immature Granulocytes Pct Auto 0.3 % (0.0-0.5); Lymphocytes Absolute Auto 2.6 10^3/uL (1.2-3.8); Lymphocytes Percent Auto 36.6 % (20.5-60.0); Mean Corpuscular HGB Conc 34.6 g/dL (29.9-35.2); Mean Corpuscular Hemoglobin 31.8 pg (25.9-34.0); Mean Corpuscular Volume 91.8 fL (80.0-94.0); Mean Platelet Volume 10.9 fL (9.5-13.5); Monocytes Absolute Auto 0.9 10^3/uL (0.3-0.8); Monocytes Percent Auto 13.2 % (1.7-12.0); Neutrophils Absolute Auto 3.2 10^3/uL (1.4-6.5); Neutrophils Percent Auto 45.5 % (43.0-75.0); Platelet Count 160 10^3/uL (150-450); Red Blood Count 4.15 10^6/uL (4.70-6.10); Red Cell Distribution Width 12.6 % (11.0-15.0); White Blood Count 7.1 10^3/uL (4.0-11.0)
[2024-04-08 01:58] LABS: Anion Gap 12.6; Carbon Dioxide 26.9 mmol/L (21.0-32.0); Chloride 104 mmol/L (98-107); Estimated GFR (African America >60 (>=60 mL/min/1.73m^2); Estimated GFR (Non-African Ame >60 (>=60 mL/min/1.73m^2); Glucose 141 mg/dL (74-106); Potassium 3.5 mmol/L (3.5-5.1); Sodium 140 mmol/L (136-145)
[2024-04-08 02:00] LABS: Influenza Virus A Antigen Negative; Influenza Virus B Antigen Negative; Internal Control Within Normal Limits; SARS-CoV-2 Ag NEGATIVE (NEGATIVE)
== END 2024-04-08 03:30 | disposition home or self-care (01) ==
PROVIDERS: Emergency Provider Internal Medicine
DX: B34.9 Viral infection, unspecified (principal); F17.200 Nicotine dependence, unspecified, uncomplicated
CPT/HCPCS: 36415; 71045; 80048; 85025; 87804; 87811; 99284

== ENCOUNTER 2024-04-17 20:55 | Emergency (ER) | payer SELFPAY ==
[2024-04-17 20:58] VITALS: BP 154/89; PULSE 76; TEMP 36.4; O2SAT 100; BMI 25.1
--- OUTSIDE RECORDS SUMMARY | 2024-04-17 21:00 | XMS_ITS | CCD ---
Author Organization [facility] Care Team Providers Care Firefighting Equipment Specialist Name Role Phone DR JUDY SANCHEZ Primary [...] EIA Ql (Throat) Negative Normal NEG [facility] Comment on above: Performed By: #### 6 [id number] #### [facility] ([id number]) [address] [place], [place] [address] RAPID STREP SCR NURSINGon S. pyogenes Ag EIA Ql (Throat) Negative Normal NEG [facility] Comment on above: Performed By: #### 6 556-5 #### [facility] ([id number]) [address] [place] [address] SARS/FLU A+B/RSV by NAAT/Mol ecularon 10-03-2023 SARS/FLU [...] operators who are performing tests using either GeneXDodonation DX or GeneRoojoom Infinity systems and is limited to laboratories [...] repeat. Fact Sheet for Healthcare Providers: https://www.fda.gov/m edia/913162/download Fact Sheet for Patients: https://www.fda.gov/m edia/903953/download Normal [facility] Comment on above: Performed By: #### C OVFLR #### [facility] ([id number]) [address] [place] [address], [place] [address] CARDIAC NAZARIO 3-6on 2 CK [Catalytic activity/Vol] 79 U/L Normal 39-308 [facility] Comment on above: Performed By: #### C MREP #### [facility] [address] [place] [address] Dr. Samreen Vo CK.MB [Mass/Vol] 0.51 ng/mL Normal <=3.60 [facility] Comment on above: Performed By: #### C MREP #### [facility] [address] [place] [address] Dr. Samreen Vo HSTROP 4.5 pg/mL Normal 4.0-76.1 [facility] Comment on above: Result Comment: CUT- OFF POINTS HAVE BEEN ESTABLISHED BASED ON THE FOURTH UNIVERSAL DEFINITIONS OF MYOCARDIAL INFARCTION. THE UPPER REFERENCE LIMIT (URL) OF TROPONIN, DEFINED THE 99TH PERCENTILE OF cTnI DISTRIBUTION IN A REFERENCE POPULATION, HAS BEEN CONFIRMED THE DECISION THRESHOLD FOR MD DIAGNOSIS. Performed By: #### C MREP #### [facility] [address] [address] [address] Samreen Vo CARDIAC NAZARIO ADMITon 022 CK [Catalytic activity/Vol] 85 U/L Normal 39-308 [facility] Comment on above: Performed By: #### C MADM, BMP #### [facility] [address] [address] [address] Samreen Vo CK.MB [Mass/Vol] 0.57 ng/mL Normal <=3.60 [facility] Comment on above: Performed By: #### C MADM, BMP #### [facility] [address] [place] [address] Dr. Samreen Vo HSTROP <4.0 Normal 4.0-76.1 [facility] Comment on above: Result Comment: CUT- OFF POINTS HAVE BEEN ESTABLISHED BASED ON THE FOURTH UNIVERSAL DEFINITIONS OF MYOCARDIAL INFARCTION. THE UPPER REFERENCE LIMIT (URL) OF TROPONIN, DEFINED THE 99TH PERCENTILE OF cTnI DISTRIBUTION IN A REFERENCE POPULATION, HAS BEEN CONFIRMED THE DECISION THRESHOLD FOR MD DIAGNOSIS. Performed By: #### C MADM, BMP #### [facility] [address] [place] [address] Dr. Samreen Vo ARUN 24 ng/mL Normal 16-96 [facility] Comment on above: Performed By: #### C CARLITAM, BMP #### [facility] [address] [place] [address] Dr. Samreen Vo CBC AUTO DIFFon 05-23-2022 BASO # 0.0 103/ul Normal 0.0-0.1 [facility] Comment on above: Performed By: #### C BC #### [facility] [address] [place] [address] Dr. Samreen Vo Basophils/100 WBC (Bld) 0.5 % Normal 0.2-2.0 [facility] Comment on above: Performed By: #### C BC #### [facility] [address] [place] [address] Dr. Samreen Vo EO # 0.3 103/ul Normal 0.0-0.7 [facility] Comment on above: Performed By: #### C BC #### [facility] [address] [place] [address] Dr. Samreen Vo Eosinophils/100 WBC (Bld) 4.0 % Normal 0.9-7.0 [facility] Comment on above: Performed By: #### C BC #### [facility] [address] [place] [address] Dr. Samreen Vo Erythrocyte distribution width (RBC) [Ratio] 13.1 % Normal 11.0-15.0 [facility] Comment on above: Performed By: #### C BC #### [facility] [address] [place] [address] Dr. Samreen Vo Hematocrit (Bld) [Volume fraction] 38.8 % Critically low 42.0-54.0 [facility] Comment on above: Performed By: #### C BC #### [facility] [address] [place] [address] Dr. Samreen Vo Hemoglobin (Bld) [Mass/Vol] 13.2 g/dL Critically low 14.0-18.0 [facility] Comment on above: Performed By: #### C BC #### [facility] [address] [place] [address] Dr. Samreen Vo IG # 0.02 10e3/ul Normal 0.00-0.03 [facility] Comment on above: Performed By: #### C BC #### [facility] [address] [place] [address] Dr. Samreen Vo IG % 0.2 % Normal 0.0-0.5 [facility] Comment on above: Performed By: #### C BC #### [facility] [address] [place] [address] Dr. Samreen Vo LYMPH # 2.4 103/ul Normal 1.2-3.8 [facility] Comment on above: Performed By: #### C BC #### [facility] [address] [place] [address] Dr. Samreen Vo Lymphocytes/100 WBC (Bld) 29.2 % Normal 20.5-60.0 [facility] Comment on above: Performed By: #### C BC #### [facility] [address] [place] [address] Dr. Samreen Vo MANUAL DIFF REQ NO Normal [facility] Comment on above: Performed By: #### C BC #### [facility] [address] [place] [address] Dr. Samreen Vo MCH (RBC) [Entitic mass] 31.6 pg Normal 25.9-34.0 [facility] Comment on above: Performed By: #### C BC #### [facility] [address] [address] [address] Samreen Vo MCHC (RBC) [Mass/Vol] 34.0 g/dL Normal 29.9-35.2 [facility] Comment on above: Performed By: #### C BC #### [facility] [address] [address] [address] Samreen Vo MCV (RBC) [Entitic vol] 92.8 fL Normal 80.0-94.0 [facility] Comment on above: Performed By: #### C BC #### [facility] [address] [address] [address] Samreen Vo MONO # 0.9 103/ul Critically high 0.3-0.8 [facility] Comment on above: Performed By: #### C BC #### [facility] [address] [place] [address] Dr. Samreen Vo Monocytes/100 WBC (Bld) 10.9 % Normal 1.7-12.0 [facility] Comment on above: Performed By: #### C BC #### [facility] [address] [address] [address] Samreen Vo NEUT # 4.5 103/ul Normal 1.4-6.5 [facility] Comment on above: Performed By: #### C BC #### [facility] [address] [place] [address] Dr. Samreen Vo Neutrophils/100 WBC (Bld) 55.2 % Normal 43.0-75.0 [facility] Comment on above: Performed By: #### C BC #### [facility] [address] [address] [address] Samreen Vo Platelet mean volume (Bld) [Entitic vol] 11.5 fL Normal 9.5-13.5 [facility] Comment on above: Performed By: #### C BC #### [facility] [address] [address] [address] Samreen Vo PLT 179 103/ul Normal 150-450 [facility] Comment on above: Performed By: #### C BC #### [facility] [address] [address] [address] Samreen Vo RBC 4.18 106/ul Critically low 4.70-6.10 [facility] Comment on above: Performed By: #### C BC #### [facility] [address] [place], [place] [id number] Dr. Samreen Vo WBC 8.1 103/ul Normal 4.0-11.0 [facility] Comment on above: Performed By: #### C BC #### [facility] [address] [place] [address] Dr. Samreen [facility] SARS-CoV-2 (COVID-19) RNA GABI+probe Ql (Unsp spec) Not detected Normal NOT DETECTED [facility] Comment on above: Result Comment: This test is not yet approved or cleared by the [place] FDA. When there are no FDA-approved or cleared tests available, and other criteria are met, FDA can make tests available under an emergency access mechanism called an Emergency Use Authorization (EUA). The EUA for this test is supported by the [place] of Health and Human Service's (HHS's) declaration [...] SARS-CoV-2. Performed By: #### C VDTBH #### [facility] [address] [place] [address] Dr. Samreen Vo D-DIMERon 05-23-2022 D-DIMER <0.19 Normal <=0.59 [facility] Comment on above: Performed By: #### D DIM #### [facility] [address] [place] [address] Dr. Samreen Vo D-DIMER COMMENTS SEE BELOW Normal [facility] Comment on above: Result Comment: Incr eases [...] hospitalization. Performed By: #### D DIM #### [facility] [address] [place] [address] Dr. Samreen Vo INFLUENZA A AND B AGon 05-23 [facility] SEE BELOW Normal [facility] Comment on above: Result Comment: Nega tive for Flu A protein angiten. Infection due to Flu A cannot be ruled out. Flu A angiten in the sample may be below the detection limit of the test. Performed By: #### R SV, INFLUAB #### [facility] [address] [place] [address] Dr. Samreen Vo INFLUBNEGH SEE BELOW Normal [facility] Comment on above: Result Comment: Nega tive for Flu B protein antigen. Infection due to Flu B cannot be ruled out. Flu B antigen in the sample may be below the detection limit of the test. Performed By: #### R SV, INFLUAB #### [facility] [address] [place] [address] Dr. Samreen Vo INFLUENZA A AG Negative Normal NEGATIVE SEE COMMENT [facility] Comment on above: Performed By: #### R SV, INFLUAB #### [facility] [address] [place] [address] Dr. Samreen Vo INFLUENZA B AG Negative Normal NEGATIVE SEE COMMENT [facility] Comment on above: Performed By: #### R SV, INFLUAB #### [facility] [address] [place] [address] Dr. Samreen Vo INTERNAL CONTROLS Within Normal Limits Normal Wi thin Normal Limits [facility] Comment on above: Performed By: #### R SV, INFLUAB #### [facility] [address] [address] [address] Samreen Vo PROF CHEM 8 (BAS METB)on Anion gap [Moles/Vol] 11.8 mmol/L Normal [facility] Comment on above: Performed By: #### C MADM, BMP #### [facility] [address] [place] [address] Dr. Samreen Vo Calcium [Mass/Vol] 8.8 mg/dL Normal 8.5-10.1 [facility] Comment on above: Performed By: #### C MADM, BMP #### [facility] [address] [place] [address] Dr. Samreen Vo Chloride [Moles/Vol] 102 mmol/L Normal 98-107 [facility] Comment on above: Performed By: #### C MADM, BMP #### [facility] [address] [place] [address] Dr. Samreen Vo CO2 [Moles/Vol] 29.3 mmol/L Normal 21.0-32.0 [facility] Comment on above: Performed By: #### C MADM, BMP #### [facility] [address] [place] [address] Dr. Samreen Vo Creatinine [Mass/Vol] 0.69 mg/dL Critically low 0.70-1.30 [facility] Comment on above: Performed By: #### C CARLITAM, BMP #### [facility] [address] [place] [address] Dr. Samreen Vo EGFR-AF MARSHALLESE >60 Normal >=60 [facility] Comment on above: Performed By: #### C MADM, BMP #### [facility] [address] [place] [address] Dr. Samreen Vo EGFR-NON AF MARSHALLESE >60 Normal >=60 [facility] Comment on above: Performed By: #### C MADM, BMP #### [facility] [address] [place] [address] Dr. Samreen Vo Glucose [Mass/Vol] 96 mg/dL Normal 74-106 [facility] Comment on above: Performed By: #### C MADM, BMP #### [facility] [address] [address] [address] Samreen Vo Potassium [Moles/Vol] 4.1 mmol/L Normal 3.5-5.1 [facility] Comment on above: Performed By: #### C MADM, BMP #### [facility] [address] [address] [address] Samreen Vo Sodium [Moles/Vol] 139 mmol/L Normal 136-145 [facility] Comment on above: Performed By: #### C MADM, BMP #### [facility] [address] [address] [address] Samreen Vo Urea nitrogen [Mass/Vol] 12.0 mg/dL Normal 7.0-18.0 [facility] Comment on above: Performed By: #### C MADM, BMP #### [facility] [address] [place] [address] Dr. Samreen Vo Urea nitrogen/Creatinin e [Mass ratio] 17.4 mg/mg Normal [facility] Comment on above: Performed By: #### C MADM, BMP #### [facility] [address] [address] [address] Samreen Vo RSVon 05-23-2022 RSV AG Negative Normal NEGATIVE [facility] Comment on above: Performed By: #### R SV, INFLUAB #### [facility] [address] [place] [address] Dr. Samreen Vo XR CHEST 1 Von [...] by: CORINA PALACIOS Date: 2022-05-23 01:04 Normal [facility] Encounters Encounter Date Encounter Type Care Provider Facility Start: 03-24-2024 End: 03-24-2024 ambulatory Not Available Start: 03-24-2024 End: 03-24-2024 Patient encounter procedure Mal Carl DO Work Phone: [facility] Comment on above: Encounter for drug s creening Start: 11-19-2023 End: 11-19-2023 Emergency department patient visit NO PCP NO PCP [facility] Start: 10-03-2023 End: 10-03-2023 Emergency department patient visit NO PCP NO PCP [facility] Start: 05-23-2022 End: 05-23-[address] [facility] Facility: Payers Date Payer Category Payer Unknown [id number] 1990 Unknown [id number] 1990 Unknown [id number] 1989 Unknown [id number] 1960 Self-pay [id number] Social History Date Type Detail Facility Tobacco smoking stat [facility] Tobacco smoking consumption unknown [facility] Start: [...] and content) DATE CREATED AUTHOR 05/30/2022 [facility] DATE CREATED AUTHOR AUTHOR'S ORGANIZ ATION 11/20/2023 [facility] DATE CREATED AUTHOR AUTHOR'S ORGANIZ ATION 03/27/2024 [facility] FOR RECORDS PERTAINING TO PATIENTS WHO ARE [...] BE BASED ON THE PRIMARY CLINICAL RECORDS. [facility] [employer] [facility]. provides no warranty or guarantee of the accuracy or completeness of information in this document.
--- NOTE | 2024-04-17 21:06 | ED.DENTAL1 ---
HPI - Dental/Oral General Chief complaint: Dental/Oral Stated complaint: POSS TOOTH INFECTION Time Seen by Provider: 04/17/24 21:04 Source: patient Mode of arrival: walk-in Limitations: no limitations History of Present Illness HPI Narrative: Patient is a 33-year-old male with a history of known dental caries who presents to the emergency department for evaluation of increasing pain to tooth #2. He is in process with a maxillofacial surgeon to have all of his teeth removed. He has had issues with the teeth for some time. He reports an increase in pain since yesterday. No swelling or drainage. No difficulty swallowing. Related Data Previous Rx's ?Medication ?Instructions ?Recorded amoxicillin 500 mg capsule 500 mg PO TID 10 days #30 caps 04/17/24 ketorolac 10 mg tablet 10 mg PO TID PRN pain #10 tabs 04/17/24 Allergies Allergy/AdvReac Type Severity Reaction Status Date / Time No Known Drug Allergies Allergy Verified 04/17/24 21:01 Review of Systems ROS Constitutional Denies: fever or chills Ears, nose, mouth, and throat Reports: mouth pain; Denies: throat pain or nasal congestion Cardiovascular Denies: chest pain Respiratory Denies: shortness of breath Gastrointestinal Denies: nausea or vomiting Integumentary/Breast Denies: rash Neurological Denies: numbness in extremities or weakness in extremities Hematologic/Lymphatic Denies: easy bruising or easy bleeding PFSH PFSH Social History Smoking status: Current every day smoker Little interest or pleasure in doing things: not at all Feeling down, depressed, or hopeless: not at all Exam Narrative Exam Narrative: Gen.: Awake, alert, in no distress Head: Normocephalic, atraumatic ENT: Moist mucous membranes, no maxillary or mandibular swelling. Multiple dental caries with no redness or swelling under the tongue. No trismus or drooling. Clear speech. Uvula midline Respiratory: No respiratory distress Extremities: Moves extremities equally Psych: Normal mood and affect Neuro: No focal neuro deficit Skin: Warm, dry, intact Constitutional Vital Signs, click to edit/add: Last Vital Signs Temp 97.5 F L 04/17/24 20:58 Pulse 76 04/17/24 20:58 Resp 18 04/17/24 20:58 BP 154/89 H 04/17/24 20:58 Pulse Ox 100 04/17/24 20:58 O2 Del Method Room Air 04/17/24 20:58 Course Vital Signs Vital signs: Vital Signs Temperature 97.5 F L 04/17/24 20:58 Pulse Rate 76 04/17/24 20:58 Respiratory Rate 18 04/17/24 20:58 Blood Pressure 154/89 H 04/17/24 20:58 Pulse Oximetry 100 04/17/24 20:58 Oxygen Delivery Method Room Air 04/17/24 20:58 Temperature 97.5 F L 04/17/24 20:58 Pulse Rate 76 04/17/24 20:58 Respiratory Rate 18 04/17/24 20:58 Blood Pressure 154/89 H 04/17/24 20:58 Pulse Oximetry 100 04/17/24 20:58 Oxygen Delivery Method Room Air 04/17/24 20:58 MDM - Dental/Oral MDM Narrative Medical decision making narrative: Patient treated with dental analgesia, first dose of amoxicillin and Toradol given in the ER and he request an additional amoxicillin for the morning. Follow-up with dental and return to the ER if symptoms change or worsen. SUPERVISED APC VISIT, PHYSICIAN ATTESTATION: Based on the medical record the care appears appropriate. ? Medical Records Attestation: I reviewed the patient's medical records. Discharge Plan Discharge Chief Complaint: Dental/Oral Clinical Impression: Tooth ache, Dental caries Patient Disposition: Home, Self-Care Time of Disposition Decision: 21:05 Condition: Good Prescriptions / Home Meds: New amoxicillin 500 mg capsule 500 mg PO TID 10 Days Qty: 30 0RF ketorolac 10 mg tablet 10 mg PO TID PRN (Reason: pain) Qty: 10 0RF Print Language: Sri L[place]an Instructions: Toothache (ED) Referrals: Physician,Non-Staff, MD [Primary Care Provider] - 1 week
[2024-04-17] MEDS: BENZOCAINE 30 ML, lidocaine HCL 15 ML MM (21:18)
[2024-04-17] MEDS: AMOXICILLIN 500 MG CAPSULE 1000 MG PO (21:18)
[2024-04-17] MEDS: KETOROLAC TROMETHAMINE 10 MG TABLET PO (21:18)
== END 2024-04-17 21:20 | disposition home or self-care (01) ==
PROVIDERS: Emergency Provider Student in an Organized Health Care Education/Training Program
DX: K02.9 Dental caries, unspecified (principal); K08.89 Other specified disorders of teeth and supporting structures
CPT/HCPCS: 99283

== ENCOUNTER 2024-05-21 01:25 | Emergency (ER) | payer SELFPAY ==
[2024-05-21 01:28] VITALS: BP 152/89; PULSE 71; TEMP 37; O2SAT 100; BMI 25.1
--- OUTSIDE RECORDS SUMMARY | 2024-05-21 01:47 | XMS_ITS | CCD ---
Author Organization [facility] Care Team Providers Care Ferry Engineer Name Role Phone DR JUDY SANCHEZ Primary [...] EIA Ql (Throat) Negative Normal NEG [facility] Comment on above: Performed By: #### 6 556-5 #### [facility] ([id number]) [address] [facility], [place] [address] RAPID STREP SCR NURSINGon S. pyogenes Ag EIA Ql (Throat) Negative Normal NEG [facility] Comment on above: Performed By: #### 6 556-5 #### [facility] ([id number]) [address] [place] [address] SARS/FLU A+B/RSV by NAAT/Mol ecularon 10-03-2023 SARS/FLU [...] operators who are performing tests using either [employer] or [employer] systems and is limited to laboratories [...] repeat. Fact Sheet for Healthcare Providers: https://www.fda.gov/m edia/449904/download Fact Sheet for Patients: https://www.fda.gov/m edia/817567/download Normal [facility] Comment on above: Performed By: #### C OVFLR #### [facility] ([id number]) [address] [place] [address], [place] [address] CARDIAC NAZARIO 3-6on 2 CK [Catalytic activity/Vol] 79 U/L Normal 39-308 [facility] Comment on above: Performed By: #### C MREP #### [facility] [address] [place] [address] Dr. Samreen Vo CK.MB [Mass/Vol] 0.51 ng/mL Normal <=3.60 [facility] Comment on above: Performed By: #### C MREP #### [facility] [address] [place] [address] Dr. Samreen Vo HSTROP 4.5 pg/mL Normal 4.0-76.1 [facility] Comment on above: Result Comment: CUT- OFF POINTS HAVE BEEN ESTABLISHED BASED ON THE FOURTH UNIVERSAL DEFINITIONS OF MYOCARDIAL INFARCTION. THE UPPER REFERENCE LIMIT (URL) OF TROPONIN, DEFINED THE 99TH PERCENTILE OF cTnI DISTRIBUTION IN A REFERENCE POPULATION, HAS BEEN CONFIRMED THE DECISION THRESHOLD FOR NC DIAGNOSIS. Performed By: #### C MREP #### [facility] [address] [address] [address] Samreen Vo CARDIAC NAZARIO ADMITon 022 CK [Catalytic activity/Vol] 85 U/L Normal 39-308 [facility] Comment on above: Performed By: #### C MADM, BMP #### [facility] [address] [address] [address] Samreen Vo CK.MB [Mass/Vol] 0.57 ng/mL Normal <=3.60 [facility] Comment on above: Performed By: #### C MADM, BMP #### [facility] [address] [place] [address] Dr. Samreen Vo HSTROP <4.0 Normal 4.0-76.1 [facility] Comment on above: Result Comment: CUT- OFF POINTS HAVE BEEN ESTABLISHED BASED ON THE FOURTH UNIVERSAL DEFINITIONS OF MYOCARDIAL INFARCTION. THE UPPER REFERENCE LIMIT (URL) OF TROPONIN, DEFINED THE 99TH PERCENTILE OF cTnI DISTRIBUTION IN A REFERENCE POPULATION, HAS BEEN CONFIRMED THE DECISION THRESHOLD FOR NC DIAGNOSIS. Performed By: #### C MADM, BMP #### [facility] [address] [place] [address] Dr. Samreen Vo ARUN 24 ng/mL Normal 16-96 [facility] Comment on above: Performed By: #### C CARLITAM, BMP #### [facility] [address] [place] [address] Dr. Samreen Vo CBC AUTO DIFFon 05-23-2022 BASO # 0.0 103/ul Normal 0.0-0.1 [facility] Comment on above: Performed By: #### C BC #### [facility] [address] [place] [address] Dr. Samreen Vo Basophils/100 WBC (Bld) 0.5 % Normal 0.2-2.0 [facility] Comment on above: Performed By: #### C BC #### [facility] [address] [place] [address] Dr. Samreen Vo EO # 0.3 103/ul Normal 0.0-0.7 [facility] Comment on above: Performed By: #### C BC #### [facility] [address] [place] [address] Dr. Samreen Vo Eosinophils/100 WBC (Bld) 4.0 % Normal 0.9-7.0 [facility] Comment on above: Performed By: #### C BC #### [facility] [address] [place] [address] Dr. Samreen Vo Erythrocyte distribution width (RBC) [Ratio] 13.1 % Normal 11.0-15.0 [facility] Comment on above: Performed By: #### C BC #### [facility] [address] [place] [address] Dr. Samreen Vo Hematocrit (Bld) [Volume fraction] 38.8 % Critically low 42.0-54.0 [facility] Comment on above: Performed By: #### C BC #### [facility] [address] [place] [address] Dr. Samreen Vo Hemoglobin (Bld) [Mass/Vol] 13.2 g/dL Critically low 14.0-18.0 [facility] Comment on above: Performed By: #### C BC #### [facility] [address] [place] [address] Dr. Samreen Vo IG # 0.02 10e3/ul Normal 0.00-0.03 [facility] Comment on above: Performed By: #### C BC #### [facility] [address] [place] [address] Dr. Samreen Vo IG % 0.2 % Normal 0.0-0.5 [facility] Comment on above: Performed By: #### C BC #### [facility] [address] [place] [address] Dr. Samreen Vo LYMPH # 2.4 103/ul Normal 1.2-3.8 [facility] Comment on above: Performed By: #### C BC #### [facility] [address] [place] [address] Dr. Samreen Vo Lymphocytes/100 WBC (Bld) 29.2 % Normal 20.5-60.0 [facility] Comment on above: Performed By: #### C BC #### [facility] [address] [place] [address] Dr. Samreen Vo MANUAL DIFF REQ NO Normal [facility] Comment on above: Performed By: #### C BC #### [facility] [address] [place] [address] Dr. Samreen Vo MCH (RBC) [Entitic mass] 31.6 pg Normal 25.9-34.0 [facility] Comment on above: Performed By: #### C BC #### [facility] [address] [address] [address] Samreen Vo MCHC (RBC) [Mass/Vol] 34.0 g/dL Normal 29.9-35.2 [facility] Comment on above: Performed By: #### C BC #### [facility] [address] [address] [address] Samreen Vo MCV (RBC) [Entitic vol] 92.8 fL Normal 80.0-94.0 [facility] Comment on above: Performed By: #### C BC #### [facility] [address] [address] [address] Samreen Vo MONO # 0.9 103/ul Critically high 0.3-0.8 [facility] Comment on above: Performed By: #### C BC #### [facility] [address] [place] [address] Dr. Samreen Vo Monocytes/100 WBC (Bld) 10.9 % Normal 1.7-12.0 [facility] Comment on above: Performed By: #### C BC #### [facility] [address] [address] [address] Samreen Vo NEUT # 4.5 103/ul Normal 1.4-6.5 [facility] Comment on above: Performed By: #### C BC #### [facility] [address] [place] [address] Dr. Samreen Vo Neutrophils/100 WBC (Bld) 55.2 % Normal 43.0-75.0 [facility] Comment on above: Performed By: #### C BC #### [facility] [address] [address] [address] Samreen Vo Platelet mean volume (Bld) [Entitic vol] 11.5 fL Normal 9.5-13.5 [facility] Comment on above: Performed By: #### C BC #### [facility] [address] [address] [address] Samreen Vo PLT 179 103/ul Normal 150-450 [facility] Comment on above: Performed By: #### C BC #### [facility] [address] [address] [address] Samreen Vo RBC 4.18 106/ul Critically low 4.70-6.10 [facility] Comment on above: Performed By: #### C BC #### [facility] [address] [place], [place] [id number] Dr. Samreen Vo WBC 8.1 103/ul Normal 4.0-11.0 [facility] Comment on above: Performed By: #### C BC #### [facility] [address] [place] [address] Dr. Samreen Vo [facility]-09 SARS-CoV-2 (COVID-19) RNA GABI+probe Ql (Unsp spec) Not detected Normal NOT DETECTED [facility] Comment on above: Result Comment: This test is not yet approved or cleared by the [place] FDA. When there are no FDA-approved or cleared tests available, and other criteria are met, FDA can make tests available under an emergency access mechanism called an Emergency Use Authorization (EUA). The EUA for this test is supported by the [place] of Health and Human Service's (HHS's) declaration [...] SARS-CoV-2. Performed By: #### C VDTBH #### [facility] [address] [place] [address] Dr. Samreen Vo D-DIMERon 05-23-2022 D-DIMER <0.19 Normal <=0.59 [facility] Comment on above: Performed By: #### D DIM #### [facility] [address] [place] [address] Dr. Samreen Vo D-DIMER COMMENTS SEE BELOW Normal [facility] Comment on above: Result Comment: Incr [...] hospitalization. Performed By: #### D DIM #### [facility] [address] [place] [address] Dr. Samreen Vo INFLUENZA A AND B AGon 05-23 [facility] SEE BELOW Normal [facility] Comment on above: Result Comment: Nega tive for Flu A protein angiten. Infection due to Flu A cannot be ruled out. Flu A angiten in the sample may be below the detection limit of the test. Performed By: #### R SV, INFLUAB #### [facility] [address] [place] [address] Dr. Samreen Vo INFLUBNEGH SEE BELOW Normal [facility] Comment on above: Result Comment: Nega tive for Flu B protein antigen. Infection due to Flu B cannot be ruled out. Flu B antigen in the sample may be below the detection limit of the test. Performed By: #### R SV, INFLUAB #### [facility] [address] [place] [address] Dr. Samreen Vo INFLUENZA A AG Negative Normal NEGATIVE SEE COMMENT [facility] Comment on above: Performed By: #### R SV, INFLUAB #### [facility] [address] [place] [address] Dr. Samreen Vo INFLUENZA B AG Negative Normal NEGATIVE SEE COMMENT [facility] Comment on above: Performed By: #### R SV, INFLUAB #### [facility] [address] [place] [address] Dr. Samreen Vo INTERNAL CONTROLS Within Normal Limits Normal Wi thin Normal Limits [facility] Comment on above: Performed By: #### R SV, INFLUAB #### [facility] [address] [address] [address] Sameren Vo PROF CHEM 8 (BAS METB)on Anion gap [Moles/Vol] 11.8 mmol/L Normal [facility] Comment on above: Performed By: #### C MADM, BMP #### [facility] [address] [place] [address] Dr. Samreen Vo Calcium [Mass/Vol] 8.8 mg/dL Normal 8.5-10.1 [facility] Comment on above: Performed By: #### C MADM, BMP #### [facility] [address] [place] [address] Dr. Samreen Vo Chloride [Moles/Vol] 102 mmol/L Normal 98-107 [facility] Comment on above: Performed By: #### C MADM, BMP #### [facility] [address] [place] [address] Dr. Samreen Vo CO2 [Moles/Vol] 29.3 mmol/L Normal 21.0-32.0 [facility] Comment on above: Performed By: #### C MADM, BMP #### [facility] [address] [place] [address] Dr. Samreen Vo Creatinine [Mass/Vol] 0.69 mg/dL Critically low 0.70-1.30 [facility] Comment on above: Performed By: #### C CARLITAM, BMP #### [facility] [address] [place] [address] Dr. Samreen Vo EGFR-AF CITIZEN OF [place] >60 Normal >=60 [facility] Comment on above: Performed By: #### C MADM, BMP #### [facility] [address] [place] [address] Dr. Samreen Vo EGFR-NON AF CITIZEN OF [place] >60 Normal >=60 [facility] Comment on above: Performed By: #### C MADM, BMP #### [facility] [address] [place] [address] Dr. Samreen Vo Glucose [Mass/Vol] 96 mg/dL Normal 74-106 [facility] Comment on above: Performed By: #### C MADM, BMP #### [facility] [address] [address] [address] Samreen Vo Potassium [Moles/Vol] 4.1 mmol/L Normal 3.5-5.1 [facility] Comment on above: Performed By: #### C MADM, BMP #### [facility] [address] [address] [address] Samreen Vo Sodium [Moles/Vol] 139 mmol/L Normal 136-145 [facility] Comment on above: Performed By: #### C MADM, BMP #### [facility] [address] [address] [address] Samreen Vo Urea nitrogen [Mass/Vol] 12.0 mg/dL Normal 7.0-18.0 [facility] Comment on above: Performed By: #### C MADM, BMP #### [facility] [address] [place] [address] Dr. Samreen Vo Urea nitrogen/Creatinin e [Mass ratio] 17.4 mg/mg Normal [facility] Comment on above: Performed By: #### C MADM, BMP #### [facility] [address] [address] [address] Samreen Vo RSVon 05-23-2022 RSV AG Negative Normal NEGATIVE [facility] Comment on above: Performed By: #### R SV, INFLUAB #### [facility] [address] [place] [address] Dr. Samreen Vo XR CHEST 1 Von [...] by: CORINA PALACIOS Date: 2022-05-23 01:04 Normal [facility] Encounters Encounter Date Encounter Type Care Provider Facility Start: 03-24-2024 End: 03-24-2024 ambulatory Not Available Start: 03-24-2024 End: 03-24-2024 Patient encounter procedure Mal Carl DO Work Phone: [facility] Comment on above: Encounter for drug s creening Start: 11-19-2023 End: 11-19-2023 Emergency department patient visit NO [facility]CP [facility] Start: 10-03-2023 End: 10-03-2023 Emergency department patient visit NO PCP NO [facility]CP [facility] Start: 05-23-2022 End: 05-23-[address] [facility] Facility: Payers Date Payer Category Payer Unknown [id number] 1990 Unknown [id number] 1989 Unknown [id number] 1989 Unknown [id number] 1960 Self-pay [id number] Social History Date Type Detail Facility Tobacco smoking stat [facility] Tobacco smoking consumption unknown [facility] Start: [...] and content) DATE CREATED AUTHOR 05/30/2022 [facility] DATE CREATED AUTHOR AUTHOR'S ORGANIZ ATION 11/20/2023 [facility] DATE CREATED AUTHOR AUTHOR'S ORGANIZ ATION 03/27/2024 [facility] FOR RECORDS PERTAINING TO PATIENTS WHO ARE [...] BE BASED ON THE PRIMARY CLINICAL RECORDS. [employer] [facility]. provides no warranty or guarantee of the accuracy or completeness of information in this document.
--- NOTE | 2024-05-21 02:07 | ED.DENTAL1 ---
HPI - Dental/Oral General Chief complaint: Dental/Oral Stated complaint: TOOTH PAIN Time Seen by Provider: 05/21/24 01:40 Source: patient Mode of arrival: walk-in Limitations: no limitations History of Present Illness HPI Narrative: This 33-year-old male with a history of periodontal disease presents for evaluation of right upper dental pain. The patient has had his lower teeth extracted. He has several teeth in the right upper mandible that are remaining and are decayed and decaying to the gumline. He states that these of the teeth that are causing him pain. He is drinking water to try to help ease the pain. He denies any fever. He states that he recently switched jobs and is waiting for his insurance to kick in so he can get the remainder of his teeth extracted. Related Data Previous Rx's ?Medication ?Instructions ?Recorded amoxicillin 500 mg capsule 500 mg PO TID 10 days #30 caps 04/17/24 ketorolac 10 mg tablet 10 mg PO TID PRN pain #10 tabs 04/17/24 Allergies Allergy/AdvReac Type Severity Reaction Status Date / Time No Known Drug Allergies Allergy Verified 05/21/24 01:32 Review of Systems ROS Status of ROS 10 or more systems reviewed and unremarkable except as noted in history and below PFSH [facility] Social History Smoking status: Current every day smoker Little interest or pleasure in doing things: not at all Feeling down, depressed, or hopeless: not at all Exam Narrative Exam Narrative: Vital signs and Nursing Notes reviewed: Patient is afebrile with a normal pulse, blood pressure is elevated at 152/89, he is not hypoxic with pulse ox of 100% on room air General: Awake, alert, oriented, uncomfortable appearing adult male drinking water to ease his mouth pain, no respiratory distress HEENT: Normocephalic atraumatic, mucous membranes are moist and pink, eyes are clear, normal conjunctiva, vision is grossly intact, the patient's lower teeth have been extracted. There are several teeth remaining in the upper jawline. The teeth in the right upper mandible are decayed and decaying to the gumline. There is no sign of necrotizing gingivitis. There is no swelling of the tongue, uvula or pharyngeal soft tissues. I do not appreciate any periapical abscess. Constitutional Vital Signs, click to edit/add: Last Vital Signs Temp 98.6 F 05/21/24 01:28 Pulse 71 05/21/24 01:28 Resp 16 05/21/24 01:28 BP 152/89 H 05/21/24 01:28 Pulse Ox 100 05/21/24 01:28 O2 Del Method Room Air 05/21/24 01:28 Course Vital Signs Vital signs: Vital Signs Temperature 98.6 F 05/21/24 01:28 Pulse Rate 71 05/21/24 01:28 Respiratory Rate 16 05/21/24 01:28 Blood Pressure 152/89 H 05/21/24 01:28 Pulse Oximetry 100 05/21/24 01:28 Oxygen Delivery Method Room Air 05/21/24 01:28 Temperature 98.6 F 05/21/24 01:28 Pulse Rate 71 05/21/24 01:28 Respiratory Rate 16 05/21/24 01:28 Blood Pressure 152/89 H 05/21/24 01:28 Pulse Oximetry 100 05/21/24 01:28 Oxygen Delivery Method Room Air 05/21/24 01:28 MDM - Dental/Oral MDM Narrative Medical decision making narrative: This patient with a history of periodontal disease presents for evaluation of right upper dental pain. He has multiple decayed and decaying teeth specifically 3 decaying and decayed teeth in the right upper mandible that are causing him pain at this time. There is no sign of necrotizing gingivitis. His vital signs are stable. He is tolerating secretions without difficulty and drinking cold water to try to ease the pain in his mouth. He was medicated with a dose of amoxicillin, dental analgesia and given [place] in the emergency department. I did review his OARRS report. He has not had any recent prescriptions for narcotic medications and will be discharged home with a prescription for tramadol as well as amoxicillin. The patient states that he is working on getting his new insurance up-to-date so that he can obtain a dentist to get the remainder of his teeth extracted. Discharge Plan Discharge Chief Complaint: Dental/Oral Clinical Impression: Tooth ache, Chronic periodontal disease Patient Disposition: Home, Self-Care Time of Disposition Decision: 02:07 Condition: Good Prescriptions / Home Meds: No Action amoxicillin 500 mg capsule 500 mg PO TID 10 Days Qty: 30 0RF ketorolac 10 mg tablet 10 mg PO TID PRN (Reason: pain) Qty: 10 0RF Print Language: Chinese Instructions: Periodontal Disease (DC) Referrals: Physician,Non-Staff, MD [Primary Care Provider] - 1 week
[2024-05-21] MEDS: AMOXICILLIN 500 MG CAPSULE PO (02:23)
[2024-05-21] MEDS: HYDROCODONE/ACET 5-325 MG TABLET 2 TAB PO (02:24)
[2024-05-21] MEDS: BENZOCAINE 30 ML, lidocaine HCL 15 ML MM (02:24)
== END 2024-05-21 02:30 | disposition home or self-care (01) ==
PROVIDERS: Emergency Provider Emergency Medicine
DX: K05.6 Periodontal disease, unspecified (principal); K08.89 Other specified disorders of teeth and supporting structures; F17.200 Nicotine dependence, unspecified, uncomplicated
CPT/HCPCS: 99284

== ENCOUNTER 2024-09-11 18:05 | Emergency (ER) | payer OTHER, SELFPAY ==
[2024-09-11 18:08] VITALS: BP 151/98; PULSE 73; TEMP 36.6; O2SAT 100; BMI 26.4
--- OUTSIDE RECORDS SUMMARY | 2024-09-11 18:16 | XMS_ITS | CCD ---
Author Organization [facility] Care Team Providers Care Specialized Developer Name Role Phone DR JUDY SANCHEZ Primary [...] EIA Ql (Throat) Negative Normal NEG [facility] Comment on above: Performed By: #### 6 556-5 #### [facility] ([id number]) [address] [facility], [place] [address] RAPID STREP SCR NURSINGon S. pyogenes Ag EIA Ql (Throat) Negative Normal NEG [facility] Comment on above: Performed By: #### 6 556-5 #### [facility] ([id number]) [address] [place] [address] SARS/FLU A+B/RSV by NAAT/Mol ecularon 10-03-2023 SARS/FLU [...] operators who are performing tests using either GeneXClarient DX or GeneKindo Network Infinity systems and is limited to laboratories [...] repeat. Fact Sheet for Healthcare Providers: https://www.fda.gov/m edia/682561/download Fact Sheet for Patients: https://www.fda.gov/m edia/066889/download Normal [facility] Comment on above: Performed By: #### C OVFLR #### [facility] ([id number]) [address] [place] [address], [place] [address] CARDIAC NAZARIO 3-6on 2 CK [Catalytic activity/Vol] 79 U/L Normal 39-308 [facility] Comment on above: Performed By: #### C MREP #### [facility] [address] [place] [address] Dr. Samreen Vo CK.MB [Mass/Vol] 0.51 ng/mL Normal <=3.60 [facility] Comment on above: Performed By: #### C MREP #### [facility] [address] [place] [address] Dr. Samreen Vo HSTROP 4.5 pg/mL Normal 4.0-76.[address] [facility] Comment on above: Result Comment: CUT- OFF POINTS HAVE BEEN ESTABLISHED BASED ON THE FOURTH UNIVERSAL DEFINITIONS OF MYOCARDIAL INFARCTION. THE UPPER REFERENCE LIMIT (URL) OF TROPONIN, DEFINED THE 99TH PERCENTILE OF cTnI DISTRIBUTION IN A REFERENCE POPULATION, HAS BEEN CONFIRMED THE DECISION THRESHOLD FOR VT DIAGNOSIS. Performed By: #### C MREP #### [facility] [address] [address] [address] Samreen Vo CARDIAC NAZARIO ADMITon 022 CK [Catalytic activity/Vol] 85 U/L Normal 39-308 [facility] Comment on above: Performed By: #### C MADM, BMP #### [facility] [address] [address] [address] Samreen Vo CK.MB [Mass/Vol] 0.57 ng/mL Normal <=3.60 [facility] Comment on above: Performed By: #### C MADM, BMP #### [facility] [address] [place] [address] Dr. Samreen Vo HSTROP <4.0 Normal 4.0-76.1 [facility] Comment on above: Result Comment: CUT- OFF POINTS HAVE BEEN ESTABLISHED BASED ON THE FOURTH UNIVERSAL DEFINITIONS OF MYOCARDIAL INFARCTION. THE UPPER REFERENCE LIMIT (URL) OF TROPONIN, DEFINED THE 99TH PERCENTILE OF cTnI DISTRIBUTION IN A REFERENCE POPULATION, HAS BEEN CONFIRMED THE DECISION THRESHOLD FOR VT DIAGNOSIS. Performed By: #### C MADM, BMP #### [facility] [address] [place] [address] Dr. Samreen Vo ARUN 24 ng/mL Normal 16-96 [facility] Comment on above: Performed By: #### C CARLITAM, BMP #### [facility] [address] [place] [address] Dr. Samreen Vo CBC AUTO DIFFon 05-23-2022 BASO # 0.0 103/ul Normal 0.0-0.1 [facility] Comment on above: Performed By: #### C BC #### [facility] [address] [place] [address] Dr. Samreen Vo Basophils/100 WBC (Bld) 0.5 % Normal 0.2-2.0 [facility] Comment on above: Performed By: #### C BC #### [facility] [address] [place] [address] Dr. Samreen Vo EO # 0.3 103/ul Normal 0.0-0.[address] [facility] Comment on above: Performed By: #### C BC #### [facility] [address] [place] [address] Dr. Samreen Vo Eosinophils/100 WBC (Bld) 4.0 % Normal 0.9-7.[address] [facility] Comment on above: Performed By: #### C BC #### [facility] [address] [place] [address] Dr. Samreen Vo Erythrocyte distribution width (RBC) [Ratio] 13.1 % Normal 11.0-15.0 [facility] Comment on above: Performed By: #### C BC #### [facility] [address] [place] [address] Dr. Samreen Vo Hematocrit (Bld) [Volume fraction] 38.8 % Critically low 42.0-54.0 [facility] Comment on above: Performed By: #### C BC #### [facility] [address] [place] [address] Dr. Samreen Vo Hemoglobin (Bld) [Mass/Vol] 13.2 g/dL Critically low 14.0-18.0 [facility] Comment on above: Performed By: #### C BC #### [facility] [address] [place] [address] Dr. Samreen Vo IG # 0.02 10e3/ul Normal 0.00-0.03 [facility] Comment on above: Performed By: #### C BC #### [facility] [address] [place] [address] Dr. Samreen Vo IG % 0.2 % Normal 0.0-0.5 [facility] Comment on above: Performed By: #### C BC #### [facility] [address] [place] [address] Dr. Samreen Vo LYMPH # 2.4 103/ul Normal 1.2-3.8 [facility] Comment on above: Performed By: #### C BC #### [facility] [address] [place] [address] Dr. Samreen Vo Lymphocytes/100 WBC (Bld) 29.2 % Normal 20.5-60.0 [facility] Comment on above: Performed By: #### C BC #### [facility] [address] [place] [address] Dr. Samreen Vo MANUAL DIFF REQ NO Normal [facility] Comment on above: Performed By: #### C BC #### [facility] [address] [place] [address] Dr. Samreen Vo MCH (RBC) [Entitic mass] 31.6 pg Normal 25.9-34.0 [facility] Comment on above: Performed By: #### C BC #### [facility] [address] [address] [address] Samreen Vo MCHC (RBC) [Mass/Vol] 34.0 g/dL Normal 29.9-35.[address] [facility] Comment on above: Performed By: #### C BC #### [facility] [address] [address] [address] Samreen Vo MCV (RBC) [Entitic vol] 92.8 fL Normal 80.0-94.0 [facility] Comment on above: Performed By: #### C BC #### [facility] [address] [address] [address] Samreen Vo MONO # 0.9 103/ul Critically high 0.3-0.8 [facility] Comment on above: Performed By: #### C BC #### [facility] [address] [place] [address] Dr. Samreen Vo Monocytes/100 WBC (Bld) 10.9 % Normal 1.7-12.0 [facility] Comment on above: Performed By: #### C BC #### [facility] [address] [address] [address] Samreen Vo NEUT # 4.5 103/ul Normal 1.4-6.5 [facility] Comment on above: Performed By: #### C BC #### [facility] [address] [place] [address] Dr. Samreen Vo Neutrophils/100 WBC (Bld) 55.2 % Normal 43.0-75.[address] [facility] Comment on above: Performed By: #### C BC #### [facility] [address] [address] [address] Samreen Vo Platelet mean volume (Bld) [Entitic vol] 11.5 fL Normal 9.5-13.[address] [facility] Comment on above: Performed By: #### C BC #### [facility] [address] [address] [address] Samreen Vo PLT 179 103/ul Normal 150-[address] [facility] Comment on above: Performed By: #### C BC #### [facility] [address] [address] [address] Samreen Vo RBC 4.18 106/ul Critically low 4.70-6.10 [facility] Comment on above: Performed By: #### C BC #### [facility] [address] [place], [place] [id number] Dr. Samreen Vo WBC 8.1 103/ul Normal 4.0-11.0 [facility] Comment on above: Performed By: #### C BC #### [facility] [address] [place] [address] Dr. Samreen Vo Covid-19 PCR ([facility])on 05-09 SARS-CoV-2 (COVID-19) RNA GABI+probe Ql (Unsp spec) Not detected Normal NOT DETECTED [facility] Comment on above: Result Comment: This test is not yet approved or cleared by the [place] FDA. When there are no FDA-approved or cleared tests available, and other criteria are met, FDA can make tests available under an emergency access mechanism called an Emergency Use Authorization (EUA). The EUA for this test is supported by the [place] of Health and Human Service's (HHS's) declaration [...] SARS-CoV-2. Performed By: #### C VDTBH #### [facility] [address] [place] [address] Dr. Samreen Vo D-DIMERon 05-23-2022 D-DIMER <0.19 Normal <=0.59 [facility] Comment on above: Performed By: #### D DIM #### [facility] [address] [place] [address] Dr. Samreen Vo D-DIMER COMMENTS SEE BELOW Normal [facility] Comment on above: Result Comment: Incr [...] hospitalization. Performed By: #### D DIM #### [facility] [address] [place] [address] Dr. Samreen Vo INFLUENZA A AND B AGon 05-23 [facility] SEE BELOW Normal [facility] Comment on above: Result Comment: Nega tive for Flu A protein angiten. Infection due to Flu A cannot be ruled out. Flu A angiten in the sample may be below the detection limit of the test. Performed By: #### R SV, INFLUAB #### [facility] [address] [place] [address] Dr. Samreen Vo INFLUBNEGH SEE BELOW Normal [facility] Comment on above: Result Comment: Nega tive for Flu B protein antigen. Infection due to Flu B cannot be ruled out. Flu B antigen in the sample may be below the detection limit of the test. Performed By: #### R SV, INFLUAB #### [facility] [address] [place] [address] Dr. Samreen Vo INFLUENZA A AG Negative Normal NEGATIVE SEE COMMENT [facility] Comment on above: Performed By: #### R SV, INFLUAB #### [facility] [address] [place] [address] Dr. Samreen Vo INFLUENZA B AG Negative Normal NEGATIVE SEE COMMENT [facility] Comment on above: Performed By: #### R SV, INFLUAB #### [facility] [address] [place] [address] Dr. Samreen Vo INTERNAL CONTROLS Within Normal Limits Normal Wi thin Normal Limits [facility] Comment on above: Performed By: #### R SV, INFLUAB #### [facility] [address] [address] [address] Samreen Vo PROF CHEM 8 (BAS METB)on Anion gap [Moles/Vol] 11.8 mmol/L Normal [facility] Comment on above: Performed By: #### C MADM, BMP #### [facility] [address] [place] [address] Dr. Samreen Vo Calcium [Mass/Vol] 8.8 mg/dL Normal 8.5-10.1 [facility] Comment on above: Performed By: #### C MADM, BMP #### [facility] [address] [place] [address] Dr. Samreen Vo Chloride [Moles/Vol] 102 mmol/L Normal 98-107 [facility] Comment on above: Performed By: #### C MADM, BMP #### [facility] [address] [place] [address] Dr. Samreen Vo CO2 [Moles/Vol] 29.3 mmol/L Normal 21.0-32.0 [facility] Comment on above: Performed By: #### C MADM, BMP #### [facility] [address] [place] [address] Dr. Samreen Vo Creatinine [Mass/Vol] 0.69 mg/dL Critically low 0.70-1.30 [facility] Comment on above: Performed By: #### C CARLITAM, BMP #### [facility] [address] [place] [address] Dr. Samreen Vo EGFR-AF BARBADIAN >60 Normal >=60 [facility] Comment on above: Performed By: #### C MADM, BMP #### [facility] [address] [place] [address] Dr. Samreen Vo EGFR-NON AF BARBADIAN >60 Normal >=[address] [facility] Comment on above: Performed By: #### C MADM, BMP #### [facility] [address] [place] [address] Dr. Samreen Vo Glucose [Mass/Vol] 96 mg/dL Normal 74-106 [facility] Comment on above: Performed By: #### C MADM, BMP #### [facility] [address] [address] [address] Samreen Vo Potassium [Moles/Vol] 4.1 mmol/L Normal 3.5-5.1 [facility] Comment on above: Performed By: #### C MADM, BMP #### [facility] [address] [address] [address] Samreen Vo Sodium [Moles/Vol] 139 mmol/L Normal 136-145 [facility] Comment on above: Performed By: #### C MADM, BMP #### [facility] [address] [address] [address] Samreen Vo Urea nitrogen [Mass/Vol] 12.0 mg/dL Normal 7.0-18.0 [facility] Comment on above: Performed By: #### C MADM, BMP #### [facility] [address] [place] [address] Dr. Samreen Vo Urea nitrogen/Creatinin e [Mass ratio] 17.4 mg/mg Normal [facility] Comment on above: Performed By: #### C MADM, BMP #### [facility] [address] [address] [address] Samreen Vo RSVon 05-23-2022 RSV AG Negative Normal NEGATIVE [facility] Comment on above: Performed By: #### R SV, INFLUAB #### [facility] [address] [place] [address] Dr. Samreen Vo XR CHEST 1 Von [...] by: CORINA PALACIOS Date: 2022-05-23 01:04 Normal [facility] Encounters Encounter Date Encounter Type Care Provider Facility Start: 03-24-2024 End: 03-24-2024 ambulatory Not Available Start: 03-24-2024 End: 03-24-2024 Patient encounter procedure Mal Carl DO Work Phone: [facility] Comment on above: Encounter for drug s creening Start: 11-19-2023 End: 11-19-2023 Emergency department patient visit NO PCP NO PCP [facility] Start: 10-03-2023 End: 10-03-2023 Emergency department patient visit NO PCP NO PCP [facility] Start: 05-23-2022 End: 05-23-[address] [place] [place] Payers Date Payer Category Payer Unknown [id number] 1990 Unknown [id number] 1989 Unknown [id number] 1989 Unknown [id number] 1960 Self-pay [id number] Social History Date Type Detail Facility Tobacco smoking stat [facility] Tobacco smoking consumption unknown [facility] [...] and content) DATE CREATED AUTHOR 05/30/2022 [facility] DATE CREATED AUTHOR AUTHOR'S ORGANIZ ATION 11/20/2023 [facility] DATE CREATED AUTHOR AUTHOR'S ORGANIZ ATION 03/27/2024 [facility] FOR RECORDS PERTAINING TO PATIENTS WHO [...] BE BASED ON THE PRIMARY CLINICAL RECORDS. [facility]. provides no warranty or guarantee of the accuracy or completeness of information in this document.
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
[2024-09-11] MEDS: KETOROLAC TROMETHAMINE 30 MG/ML VIAL IM (18:46)
== END 2024-09-11 21:19 | disposition home or self-care (01) ==
PROVIDERS: Emergency Provider Internal Medicine
DX: S40.012A Contusion of left shoulder, initial encounter (principal); S90.02XA Contusion of left ankle, initial encounter; V28.49XA Other motorcycle driver injured in noncollision transport accident in traffic accident, initial encounter; F17.200 Nicotine dependence, unspecified, uncomplicated
CPT/HCPCS: 73030; 73610; 73630; 96372; 99284; J1885

== ENCOUNTER 2025-02-16 19:13 | Emergency (ER) | payer SELFPAY ==
--- OUTSIDE RECORDS SUMMARY | 2025-02-02 16:27 | XMS_ITS | Encounter Summary ---
Author Organization [facility] tem Address [facility] [id number] [address] [place] [address] Care Team Providers Care Shotblaster Name Role Phone No Pcp, No Pcp Primary Care Provider Unavailabl e Reason for Visit * Reason Comments Dental Pain Encounter Details Date Type Department Care Team (Late st Contact Info) Description 02/02/2025 4:27 PM EDT - 02/02/2025 5:27 PM EDT Emergency [facility] - Emergency [address] [place] [address] Richard Ennis Jr., MD [address] [place], [place] [id number] Pain, dental (Primary Dx); Pulpitis Discharge Disposition: Home Social History Tobacco Use Types Packs/Day Years Used Date Smoking Tobacco: Every Day Smokeless Tobacco: Never Alcohol Use Standard Drinks/Week Comments Yes 0 (1 standard drink = 0.6 oz pur e alcohol) occassional Childcare Answer Date Recorded Childcare Unknown 11/18/2018 Employment Answer Date Recorded Employment Unknown 11/18/2018 Hunger Screening Answer Date Recorded Within the past 12 months we worried whether our food would run out before we got money to buy more. Never True 02/02/2025 Within the past 12 months th e food we bought just didn't last and we didn't have money to get more. Never True 02/02/2025 Purpose - Life Answer Date Recorded Purpose and direction in life Unknown Sex and Gender Information Value Date Recorded Sex Assigned at Not on file Legal Sex Male 11:43 AM EDT Gender Identity Not on file Sexual Orientation Not on file documented as of this encounter Last Filed Vital Signs Vital Sign Reading Time Taken Comments Blood Pressure 130/90 02/02/2025 5:27 PM EDT Pulse 89 02/02/2025 5:27 PM EDT Temperature 36.6 C (97.8 F) 02/02/2025 3:41 PM EDT Respiratory Rate 16 02/02/2025 5:27 PM EDT Oxygen Saturation 98% 02/02/2025 5:27 PM EDT Inhaled Oxygen Concentration - - Weight 88.5 kg (195 lb) 02/02/2025 3:41 PM EDT Height 185.4 cm (6' 1 ) 02/02/2025 3:41 PM EDT Body Mass Index 25.73 02/02/2025 3:41 PM EDT documented in this encounter Discharge Instructions * Discharge Instructions* Richard Ennis Jr., MD - 02/02/2025 5:06 PM EDT Please take prescribed medications only as instructed. Please follow up with Dentistry, your insurance company may have a list of preferred providers. [facility] provides dental care including dental extractions. [address] [place] [address] Dental [phone] Follow up with a Primary Care Provider. If you do not have a primary care, please call [phone] ( ) to set [facility] an [facility]. Return to the ER with new/worsening/concerning symptoms. * Attachments The following attachments cannot be sent through Care Everywhere. * Dental pain ??? ED discharge instructions (Jamaican) documented in this encounter Medications at Time of Discharge benzocaine (ORAJEL) 10 % mucosal gel Apply 1 Application to the mouth or throat as needed for mucositis. 5.3 g 02/02/2025 benzonatate (TESSALON PERLES) 100 mg capsule Take 1 capsule (100 mg total) by mouth every 8 (eight) hours. 21 capsule 05/27/2022 ketorolac (TORADOL) 10 mg tablet Take 1 tablet (10 mg total) by mouth every 6 (six) hours as needed for pain. 20 tablet 02/02/2025 loratadine-pseudoep hedrine (CLARITIN-D 12 hour) 5-120 mg tablet extended release 12 hr Take 1 tablet by mouth every 12 (twelve) hours as needed (nasal congestion). 12 tablet 10/03/2023 ondansetron ODT (ZOFRAN ODT) 4 mg disintegrating tablet Dissolve 1 tablet (4 mg total) on tongue every 8 (eight) hours as needed for nausea for up to 10 doses. 10 tablet 11/19/2023 amoxicillin-pot clavulanate (AUGMENTIN) 875-125 mg per tablet Take 1 tablet by mouth every 12 (twelve) hours for 7 days. 14 tablet 02/02/2025 02/10/20 25 documented as of this encounter ED Notes * Richard Ennis Jr., MD - 02/02/2025 4:43 PM EDT Images from the original note were not included. [facility] Pt Name: Alon Cristobal Birthdate: 1990 Chief Complaint: Chief Complaint Patient presents with Dental Pain History of Present Illness: Initial evaluation performed at 4:[address] Ennis. Patient is a 34 y.o. male who presents to the ED for evaluation of Dental Pain. Pt reports he was on his way to work today when he noticed his right front canine broke. Pt states he has had pain since he felt his tooth break. Pt reports this is the first tooth that broke and states prior teeth where removed professionally. Pt states he recently was able to find insurance, but is still waiting forthings to go through so he can see dentistry. Pt reports no other concerns at this time. History provided by: Patient hand etcher used: No Past Medical History: Past Medical History: Diagnosis Date DDD (degenerative disc disease), lumbar Past Surgical History: No past surgical history on file. Family History: Family History Problem Relation Age of Onset Cancer Mother Diabetes Mother Heart disease Father Social History: Social History Socioeconomic History Marital status: Single Tobacco Use Smoking status: Every Day Smokeless tobacco: Never Substance and Sexual Activity Alcohol use: Yes Comment: occassional Drug use: Yes Types: Marijuana Comment: couple times a week Sexual activity: Defer Social Drivers of Health Food Insecurity: No Food Insecurity (02/02/2025) Hunger Screening Food Insecurity - Worry: Never True Food Insecurity - Inability: Never True Review of Systems: Review of Systems Physical Exam: ED Triage Vitals [02/02/25 1541] Temp Heart Rate Resp BP SpO2 36.6 ??C (97.8 ??F) 102 20 (!) 119/94 97 % Temp Source Heart Rate Source Patient Position BP Location FiO2 (%) Oral Pulse Ox Sitting Left arm -- Vitals: 02/02/25 1541 02/02/25 1727 BP: (!) 119/94 130/90 Temp: 36.6 ??C (97.8 ??F) TempSrc: Oral Pulse: 102 89 Resp: 20 16 SpO2: 97% 98% MAP (mmHg): 103 Height: 185.4 cm (6' 1 ) Weight: 88.5 kg (195 lb) 98 Physical Exam Vitals reviewed. HENT: Head: Normocephalic and atraumatic. Mouth/Throat: Comments: Right maxillary canine broken to the gingival surface. Eyes: Conjunctiva/sclera: Conjunctivae normal. Cardiovascular: Rate and Rhythm: Normal rate. Pulmonary: Effort: Pulmonary effort is normal. Breath sounds: Normal breath sounds. Abdominal: General: There is no distension. Palpations: Abdomen is soft. Musculoskeletal: General: Normal range of motion. Cervical back: Normal range of motion and neck supple. Skin: General: Skin is warm and dry. Neurological: General: No focal deficit present. Mental Status: He is alert and oriented to person, place, and time. GCS: GCS eye subscore is 4. GCS verbal subscore is 5. GCS motor subscore is 6. Procedure: Procedures Re-evaluation: Re-Evaluation Medical Decision Making Patient is largely edentulous. He has had some teeth professionally removed and some have simply eroded to the gingiva. Patient presents today with pain in right maxillary canine. Reports that the tooth broke today. It is broken to the gingival line. There was no gingival edema or fluctuance. Pulpitis or periapical abscess. Recommend starting antibiotic. Needs close dentistry follow up. Given list of local dentists clinics which offer sliding scale fee for service. Risk OTC drugs. Prescription drug management. ED Course: Clinical Impressions as of 02/11/25 0615 Pain, dental Pulpitis . ED Disposition ED Disposition Discharge Date/Time FriFeb 02, 2025 5:08 PM Comment At the time of discharge, the plan has been discussed with the patient regarding the diagnosis and prognosis. All questions have been answered. Verbal discharge instructions were discussed with the patient. The patient has been advised to follow up w ith their Specialist (dentistry) next available.The patient was also instructed to return to the ED if their symptoms change, worsen, new symptoms a rise or if they have any additional concerns. Medications Prescribed this Visit Sig amoxicillin-pot clavulanate (AUGMENTIN) 875-125 mg per tablet Take 1 tablet by mouth every 12 (twelve) hours for 7 days. ketorolac (TORADOL) 10 mg tablet Take 1 tablet (10 mg total) by mouth every 6 (six) hours as neededfor pain. benzocaine (ORAJEL) 10 % mucosal gel Apply 1 Application to the mouth or throat as needed for mucositis. . Please note that portions of this note were completed with a voice recognition program. Efforts were made to edit the dictations but occasionally words are mis-transcribed. Joshua Galeana 02/02/25 1644 Joshua Galeana 02/02/25 1701 Joshua Galeana 02/02/25 1721 Richard Ennis Jr., MD 02/11/25 0615 * Lucie Aleman RN - 02/02/2025 3:43 PM EDT Pt presents to ED with R upper dental pain. Pt reports known broken teeth. Pt states he needs a dental referral. Pt also asking for a work excuse. Pt denies fevers/chills. Pt a+ox4. documented in this encounter Plan of Treatment Not on file documented as of this encounter Visit Diagnoses Diagnosis Pain, dental- Primary Pulpitis documented in this encounter Administered Medications Inactive Administered Medications - up to 3 most recent administrations Medication Order MAR Action Action Date Dose Rate Site amoxicillin-pot clavulanate (AUGMENTIN) 875-125 mg per tablet 1 tablet 1 tablet, oral, Once, On Fri02/02/25 at 1659, For 1 dose, Indication: Other, Specify: dental Given 02/02/2025 5:26 PM EDT 1 tablet ibuprofen (MOTRIN) tablet 600 mg 600 mg, oral, Once, On Fri02/02/25 at 1659, For 1 dose, Look-alike/sound-alike medication - verify indication for use. Take/Give with food or milk. Given 02/02/2025 5:26 PM EDT 600 mg lidocaine viscous (XYLOCAINE VISCOUS) 2 % solution 15 mL 15 mL, mucous membrane, Once, On Fri02/02/25 at 1659, For 1 dose Given 02/02/2025 5:26 PM EDT 15 mL documented in this encounter Active and Recently Administered Medications Times are shown in EDT. Scheduled Medication Order 01/31/2025 02/01/2025 02/02/2025 amoxicillin-pot clavulanate (AUGMENTIN) 875-125 mg per tablet 1 tablet (COMPLETED) 1 tablet, oral, Once, On Fri02/02/25 at 1659, For 1 dose, Indication: Other, Specify: dental 1726 (Given - Provid er: Yamile Herrera RN) ibuprofen (MOTRIN) tablet 600 mg (COMPLETED) 600 mg, oral, Once, On Fri02/02/25 at 1659, For 1 dose, Look-alike/sound-alike medication - verify indication for use. Take/Give with food or milk. 1726 (Given - Provid er: Yamile Herrera RN) lidocaine viscous (XYLOCAINE VISCOUS) 2 % solution 15 mL (COMPLETED) 15 mL, mucous membrane, Once, On Fri02/02/25 at 1659, For 1 dose 1726 (Given - Provid er: Yamile Herrera RN) documented in this encounter Care Teams Shotblaster Relationship Specialty Start Date End Date No Pcp, [place] [id number] PCP - General Family Medicine 12/21/24 documented as of this encounter
--- OUTSIDE RECORDS SUMMARY | 2025-02-16 19:25 | XMS_ITS | Encounter Summary ---
Author Organization [facility] tem Address [id number] [address] [place] [address] Care Team Providers Care Director Of Psychology Name Role Phone No Pcp, No Pcp Primary Care Provider Unavailabl e Encounter Details Date Type Department Care Team (Latest Contact Info) Description 02/02/2025 Travel Social History Tobacco Use Types Packs/Day Years [...] on file documented as of this encounter Plan of Treatment Not on file documented as of this encounter Visit Diagnoses Not on filedocumented in this encounter Care Teams Director Of Psychology Relationship Specialty Start Date End Date No Pcp, [place] [address] PCP - General Family Medicine 12/21/24 documented as of this encounter
--- OUTSIDE RECORDS SUMMARY | 2025-02-16 19:26 | XMS_ITS | Clinical Summary ---
Author Organization [facility] Address [address] [place] [address] Care Team Providers Care Ram Car Operator Name Role Phone Unavailable Primary Care Provider Unavailabl e Social History Tobacco Use Types Packs/Day Years Used Date Smoking Tobacco: Never Assessed Sex and Gender Information Value Date Recorded Sex Assigned at Not on file Legal Sex Male 2:16 PM EDT Gender Identity Not on file Sexual Orientation Not on file Plan of Treatment Not on file
--- OUTSIDE RECORDS SUMMARY | 2025-02-16 19:29 | XMS_ITS | CCD ---
Author Organization [facility] Inform ion Partnership [facility] Care Team Providers Care Laboratory Supervisor Name Role Phone DR JUDY SANCHEZ Primary Care Unavailable MARY ORLANDO Attending Unavailable MARY ORLANDO Consulting Unavailable MARY ORLANDO Admitting Unavailable CORINA PALACIOS Consulting Unavailable Unavailable Primary Care Provider Unavailabl e NO PCP, NO PCP Primary Care Unavailable NO PCP, NO PCP Primary Care Unavailable TOYA VEGA Attending Unavailable NO PCP, NO PCP Primary Care Unavailable ALEYDA THORNE JR Attending Unavailable Problems Problem Classification Problem Date Documented Da te Episodic/Chronic Administrative/social admission (2 sources) Patient encounter status; Translations: [Encounter for blood-alcohol and blood-drug test] 03-26-2024 Episodic Disorders of teeth and jaw (4 sources) Other specified disorders of teeth and supporting structures; 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] Onset: 01-14-2025 Episodic Nonspecific chest pain (3 sources) Chest pain, unspecified; Translations: [CHEST PAIN UNSPECIFIED] Onset: 05-23-2022 Episodic Other connective tissue disease (1 source) Hand pain Onset: 12-21-2024 Episodic Other injuries and conditions due to external causes (1 source) Unspecified injury of right wrist, hand and finger(s), initial encounter; Translations: [Unspecified injury of right wrist, hand and finger(s), initial encounter] Onset: 12-21-2024 Episodic Pleurisy; pneumothorax; pulmonary collapse (1 source) Pleurisy; Translations: [PLEURISY] Onset: 05-26-2022 Episodic Substance-related disorders (1 source) Nicotine dependence, cigarettes, uncomplicated; Translations: [NICOTINE DEPEND CIGARETTES UNCOMP] Onset: 05-26-2022 Chronic Unclassified (1 source) CONTACT W/AND (SUSP) EXPOS COVID-19; Translations: [CONTACT W/AND (SUSP) EXPOS COVID-19] Onset: 05-26-2022 Unclassified (1 source) Smashed Right Hand Onset: 12-21-2024 Results Test Name Value Interpretation Reference Range Facility XR HAND RT MIN 3 VWSon 12-21 XR HAND RT MIN 3 VWS XR HAND RT MIN 3 VWS XR HAND RT MIN 3 VWS CLINICAL HISTORY: Second metacarpophalangeal joint pain. Smashing injury to the right hand COMPARISON: 11/08/2020 FINDINGS: 3 views are obtained. Soft tissues: Unremarkable. Osseous structures: No acute fracture. No destructive osseous lesion. Joints: No dislocation or malalignment. IMPRESSION: * No acute fracture or malalignment. Finalized by Alberto Khan MD on 12/21/2024 3:22 PM Normal [facility] CARDIAC NAZARIO 3-6on 2 CK [Catalytic activity/Vol] 79 U/L Normal 39-308 [facility] Comment on above: Performed By: #### C MREP #### [facility] [address] [address] [address] Samreen Vo CK.MB [Mass/Vol] 0.51 ng/mL Normal <=3.60 [facility] Comment on above: Performed By: #### C MREP #### [facility] [address] [place] [address] Dr. Samreen Vo HSTROP 4.5 pg/mL Normal 4.0-76.1 [facility] Comment on above: Result Comment: CUT- OFF POINTS HAVE BEEN ESTABLISHED BASED ON THE FOURTH UNIVERSAL DEFINITIONS OF MYOCARDIAL INFARCTION. THE UPPER REFERENCE LIMIT (URL) OF TROPONIN, DEFINED THE 99TH PERCENTILE OF cTnI DISTRIBUTION IN A REFERENCE POPULATION, HAS BEEN CONFIRMED THE DECISION THRESHOLD FOR ID DIAGNOSIS. Performed By: #### C MREP #### [facility] [address] [address] [address] Samreen Vo CARDIAC NAZARIO ADMITon 022 CK [Catalytic activity/Vol] 85 U/L Normal 39-308 [facility] Comment on above: Performed By: #### C MADM, BMP #### [facility] [address] [address] [address] Samreen Vo CK.MB [Mass/Vol] 0.57 ng/mL Normal <=3.60 [facility] Comment on above: Performed By: #### C CARLITAM, BMP #### [facility] [address] [place] [address] Dr. Samreen Vo HSTROP <4.0 Normal 4.0-76.1 [facility] Comment on above: Result Comment: CUT- OFF POINTS HAVE BEEN ESTABLISHED BASED ON THE FOURTH UNIVERSAL DEFINITIONS OF MYOCARDIAL INFARCTION. THE UPPER REFERENCE LIMIT (URL) OF TROPONIN, DEFINED THE 99TH PERCENTILE OF cTnI DISTRIBUTION IN A REFERENCE POPULATION, HAS BEEN CONFIRMED THE DECISION THRESHOLD FOR ID DIAGNOSIS. Performed By: #### C CARLITAM, BMP #### [facility] [address] [place] [address] Dr. Samreen Vo ARUN 24 ng/mL Normal 16-96 [facility] Comment on above: Performed By: #### C KATYA, BMP #### [facility] [address] [place] [address] Dr. Samreen Vo CBC AUTO DIFFon 05-23-2022 BASO # 0.0 103/ul Normal 0.0-0.1 [facility] Comment on above: Performed By: #### C BC #### [facility] [address] [place] [address] Dr. Samreen Vo Basophils/100 WBC (Bld) 0.5 % Normal 0.2-2.0 [facility] Comment on above: Performed By: #### C BC #### [facility] [address] [place] [address] Dr. Samreen Vo EO # 0.3 103/ul Normal 0.0-0.7 [facility] Comment on above: Performed By: #### C BC #### [facility] [address] [place] [address] Dr. Samreen Vo Eosinophils/100 WBC (Bld) 4.0 % Normal 0.9-7.0 [facility] Comment on above: Performed By: #### C BC #### [facility] [address] [place] [address] Dr. Samreen Vo Erythrocyte distribution width (RBC) [Ratio] 13.1 % Normal 11.0-15.0 [facility] Comment on above: Performed By: #### C BC #### [facility] [address] [place] [address] Dr. Samreen Vo Hematocrit (Bld) [Volume fraction] 38.8 % Critically low 42.0-54.0 [facility] Comment on above: Performed By: #### C BC #### [facility] [address] [place] [address] Dr. Samreen Vo Hemoglobin (Bld) [Mass/Vol] 13.2 g/dL Critically low 14.0-18.0 [facility] Comment on above: Performed By: #### C BC #### [facility] [address] [place] [address] Dr. Samreen Vo IG # 0.02 10e3/ul Normal 0.00-0.03 [facility] Comment on above: Performed By: #### C BC #### [facility] [address] [place] [address] Dr. Samreen Vo IG % 0.2 % Normal 0.0-0.5 [facility] Comment on above: Performed By: #### C BC #### [facility] [address] [place] [address] Dr. Samreen Vo LYMPH # 2.4 103/ul Normal 1.2-3.8 [facility] Comment on above: Performed By: #### C BC #### [facility] [address] [place] [address] Dr. Samreen Vo Lymphocytes/100 WBC (Bld) 29.2 % Normal 20.5-60.0 [facility] Comment on above: Performed By: #### C BC #### [facility] [address] [place] [address] Dr. Samreen Vo MANUAL DIFF REQ NO Normal [facility] Comment on above: Performed By: #### C BC #### [facility] [address] [place] [address] Dr. Samreen Vo MCH (RBC) [Entitic mass] 31.6 pg Normal 25.9-34.0 [facility] Comment on above: Performed By: #### C BC #### [facility] [address] [address] [address] Samreen Vo MCHC (RBC) [Mass/Vol] 34.0 g/dL Normal 29.9-35.2 [facility] Comment on above: Performed By: #### C BC #### [facility] [address] [address] [address] Samreen Vo MCV (RBC) [Entitic vol] 92.8 fL Normal 80.0-94.0 [facility] Comment on above: Performed By: #### C BC #### [facility] [address] [address] [address] Samreen Vo MONO # 0.9 103/ul Critically high 0.3-0.8 [facility] Comment on above: Performed By: #### C BC #### [facility] [address] [place] [address] Dr. Samreen Vo Monocytes/100 WBC (Bld) 10.9 % Normal 1.7-12.0 [facility] Comment on above: Performed By: #### C BC #### [facility] [address] [address] [address] Samreen Vo NEUT # 4.5 103/ul Normal 1.4-6.5 [facility] Comment on above: Performed By: #### C BC #### [facility] [address] [place] [address] Dr. Samreen Vo Neutrophils/100 WBC (Bld) 55.2 % Normal 43.0-75.0 [facility] Comment on above: Performed By: #### C BC #### [facility] [address] [address] [address] Samreen Vo Platelet mean volume (Bld) [Entitic vol] 11.5 fL Normal 9.5-13.5 [facility] Comment on above: Performed By: #### C BC #### [facility] [address] [place] [address] Dr. Samreen Vo PLT 179 103/ul Normal 150-[address] [facility] Comment on above: Performed By: #### C BC #### [facility] [address] [place] [address] Dr. Samreen Vo RBC 4.18 106/ul Critically low 4.70-6.10 [facility] Comment on above: Performed By: #### C BC #### [facility] [address] [place], [place] [id number] Dr. Samreen Vo WBC 8.1 103/ul Normal 4.0-11.0 [facility] Comment on above: Performed By: #### C BC #### [facility] [address] [place] [address] Dr. Samreen Vo Covid-19 PCR (CVDTB)on 05-09 SARS-CoV-2 (COVID-19) RNA GABI+probe Ql (Unsp spec) Not detected Normal NOT DETECTED [facility] Comment on above: Result Comment: This test is not yet approved or cleared by the [place] FDA. When there are no FDA-approved or cleared tests available, and other criteria are met, FDA can make tests available under an emergency access mechanism called an Emergency Use Authorization (EUA). The EUA for this test is supported by the [employer] Serv[employer] of Health and Human Service's (HHS's) declaration [...] SARS-CoV-2. Performed By: #### C VDTBH #### [facility] [address] [place] [address] Dr. Samreen Vo D-DIMERon 05-23-2022 D-DIMER <0.19 Normal <=0.59 [facility] Comment on above: Performed By: #### D DIM #### [facility] [address] [place] [address] Dr. Samreen Vo D-DIMER COMMENTS SEE BELOW Normal [facility] Comment on above: Result Comment: Incr [...] hospitalization. Performed By: #### D DIM #### [facility] [address] [place] [address] Dr. Samreen Vo INFLUENZA A AND B [facility] 05[facility] Normal [facility] Comment on above: Result Comment: Nega tive for Flu A protein angiten. Infection due to Flu A cannot be ruled out. Flu A angiten in the sample may be below the detection limit of the test. Performed By: #### R SV, INFLUAB #### [facility] [address] [place] [address] Dr. Samreen Vo INFLUBNEG SEE BELOW Normal [facility] Comment on above: Result Comment: Nega tive for Flu B protein antigen. Infection due to Flu B cannot be ruled out. Flu B antigen in the sample may be below the detection limit of the test. Performed By: #### R SV, INFLUAB #### [facility] [address] [place] [address] Dr. Samreen Vo INFLUENZA A AG Negative Normal NEGATIVE SEE COMMENT [facility] Comment on above: Performed By: #### R SV, INFLUAB #### [facility] [address] [place] [address] Dr. Samreen Vo INFLUENZA B AG Negative Normal NEGATIVE SEE COMMENT [facility] Comment on above: Performed By: #### R SV, INFLUAB #### [facility] [address] [place] [address] Dr. Samreen Vo INTERNAL CONTROLS Within Normal Limits Normal Wi thin Normal Limits [facility] Comment on above: Performed By: #### R SV, INFLUAB #### [facility] [address] [address] [address] Samreen Vo PROF CHEM 8 (BAS METB)on Anion gap [Moles/Vol] 11.8 mmol/L Normal [facility] Comment on above: Performed By: #### C MADM, BMP #### [facility] [address] [place] [address] Dr. Samreen Vo Calcium [Mass/Vol] 8.8 mg/dL Normal 8.5-10.[address] [facility] Comment on above: Performed By: #### C MADM, BMP #### [facility] [address] [place] [address] Dr. Samreen Vo Chloride [Moles/Vol] 102 mmol/L Normal 98-[address] [facility] Comment on above: Performed By: #### C MADM, BMP #### [facility] [address] [place] [address] Dr. Samreen Vo CO2 [Moles/Vol] 29.3 mmol/L Normal 21.0-32.0 [facility] Comment on above: Performed By: #### C MADM, BMP #### [facility] [address] [place] [address] Dr. Samreen Vo Creatinine [Mass/Vol] 0.69 mg/dL Critically low 0.70-1.[address] [facility] Comment on above: Performed By: #### C MADM, BMP #### [facility] [address] [place] [address] Dr. Samreen Vo EGFR-AF CENTRAL AFRICAN >60 Normal >=60 [facility] Comment on above: Performed By: #### C MADM, BMP #### [facility] [address] [place] [address] Dr. Samreen Vo EGFR-NON AF CENTRAL AFRICAN >60 Normal >=[address] [facility] Comment on above: Performed By: #### C MADM, BMP #### [facility] [address] [place] [address] Dr. Samreen Vo Glucose [Mass/Vol] 96 mg/dL Normal 74-[address] [facility] Comment on above: Performed By: #### C MADM, BMP #### [facility] [address] [address] [address] Samreen Vo Potassium [Moles/Vol] 4.1 mmol/L Normal 3.5-5.1 [facility] Comment on above: Performed By: #### C MADM, BMP #### [facility] [address] [address] [address] Samreen Vo Sodium [Moles/Vol] 139 mmol/L Normal 136-145 [facility] Comment on above: Performed By: #### C MADM, BMP #### [facility] [address] [address] [address] Samreen Vo Urea nitrogen [Mass/Vol] 12.0 mg/dL Normal 7.0-18.0 [facility] Comment on above: Performed By: #### C MADM, BMP #### [facility] [address] [address] [address] Samreen Vo Urea nitrogen/Creatini ne [Mass ratio] 17.4 mg/mg Normal [facility] Comment on above: Performed By: #### C MADM, BMP #### [facility] [address] [address] [address] Samreen Vo RSVon 05-23-2022 RSV AG Negative Normal NEGATIVE [facility] Comment on above: Performed By: #### R SV, INFLUAB #### [facility] [address] [address] [address] Samreen Vo XR CHEST 1 Von [...] by: CORINA PALACIOS Date: 2022-05-23 01:04 Normal [facility] Encounters Encounter Date Encounter Type Care Provider Facility Start: 02-02-2025 End: 02-02-2025 Emergency department patient visit NO PCP NO PCP [facility] Start: 01-21-2025 End: 01-21-2025 Emergency department patient visit [facility] Start: 01-14-2025 End: 01-14-2025 Emergency department patient visit NO PCP NO PCP [facility] Start: 12-21-2024 End: 12-21-2024 Emergency department patient visit NO PCP NO PCP [facility] Start: 03-24-2024 End: 03-24-2024 ambulatory Not Available Start: 03-24-2024 End: 03-24-2024 Patient encounter procedure Mal Michael Carl DO Work Phone: [facility] Comment on above: Encounter for drug s creening Start: 05-23-2022 End: 05-23-[address] [facility] Payers Date Payer Category Payer Unknown [id number] 1989 Unknown [id number] 1989 Unknown [id number] 1960 Self-pay [id number] Social History Date Type Detail Facility Tobacco smoking stat [facility] Tobacco smoking consumption unknown [facility] Start: 1989 Sex assigned at Not on file [facility] Gender identity Not on file [facility] are History of Present illness Narrative 03-24-2024 Zaira Limon LPN - 03/24/2024 2:20 PM EDT Note Date & Type Note Facility 03-24-2024 History of Presen t illness Narrative Pt presents today for a pre-employment drug screen for [employer]. Pt verified by photo ID. documented in this encounter [facility] Evaluation note Note Date & Type [...] Records FoundNo Status Records FoundNo Status Records FoundNo Status Records Found INFORMATION SOURCE (unrecogn ized section and content) DATE CREATED AUTHOR 05/30/2022 [facility] DATE CREATED AUTHOR AUTHOR'S ORGANIZ ATION 03/27/2024 [facility] dical [facility] DATE CREATED AUTHOR AUTHOR'S ORGANIZ ATION 01/23/2025 [facility] DATE CREATED AUTHOR AUTHOR'S ORGANIZ ATION 02/04/2025 [facility] FOR RECORDS PERTAINING TO PATIENTS WHO [...] BE BASED ON THE PRIMARY CLINICAL RECORDS. [facility] [employer] [facility]. provides no warranty or guarantee of the accuracy or completeness of information in this document.
== END 2025-02-16 20:10 | disposition left against medical advice (07) ==
LOC: ER 19:24
PROVIDERS: Emergency Provider Internal Medicine
DX: Z53.21 Procedure and treatment not carried out due to patient leaving prior to being seen by health care provider (principal)

== ENCOUNTER 2025-04-18 16:21 | Emergency (ER) | payer SELFPAY ==
[2025-04-18 16:23] VITALS: BP 147/100; PULSE 79; TEMP 36.8; O2SAT 98; BMI 23.9
--- NOTE | 2025-04-18 16:35 | ED.DENTAL1 ---
HPI - Dental/Oral General Chief complaint: Dental/Oral Stated complaint: TOOTH INFECTION Time Seen by Provider: 04/18/25 16:24 Source: patient Mode of arrival: walk-in Limitations: no limitations History of Present Illness HPI Narrative: 34 year old male presents to the ED for right upper dental discomfort, infection. Onset was a few days ago. States there has bee purulent drainage coming from the area. Reports he will have dental insurance in June, to have the remainder of his teeth extracted. Denies fever, chills, SOB, difficulty swallowing. States the pain has decreased. He is here for antibiotics; he does not want medication for discomfort. Related Data Previous Rx's ?Medication ?Instructions ?Recorded amoxicillin 500 mg capsule 500 mg PO TID 10 days #30 caps 04/17/24 ketorolac 10 mg tablet 10 mg PO TID PRN pain #10 tabs 04/17/24 amoxicillin 500 mg capsule 500 mg PO TID 10 days #30 caps 04/18/25 Allergies Allergy/AdvReac Type Severity Reaction Status Date / Time No Known Drug Allergies Allergy Verified 05/21/24 01:32 Review of Systems ROS Constitutional Denies: fever or chills Ears, nose, mouth, and throat Reports: other (dental infection); Denies: throat pain, neck pain or throat swelling Cardiovascular Denies: chest pain Respiratory Denies: shortness of breath Neurological Denies: headache PFSH PFSH Social History Smoking status: Current every day smoker Little interest or pleasure in doing things: not at all Feeling down, depressed, or hopeless: not at all Exam Constitutional Vital Signs, click to edit/add: Last Vital Signs Temp 98.2 F 04/18/25 16:23 Pulse 79 04/18/25 16:23 Resp 18 04/18/25 16:23 BP 147/100 H 04/18/25 16:23 Pulse Ox 98 04/18/25 16:23 O2 Del Method Room Air 04/18/25 16:23 HENMT Common normals: external ears normal and moist oral mucous membranes Teeth and gingiva: caries Throat: posterior oropharynx normal Other: Multiple missing teeth. Dental caries throughout remaining areas. No facial swelling. No swelling to floor of mouth. Pt speaking in full sentences, handling secretions well. No drainable abscess noted. Eye Common normals: conjunctivae normal and no scleral icterus Neck & C-Spine Common normals: supple Chest Chest: symmetrical chest wall rise Course Vital Signs Vital signs: Vital Signs Temperature 98.2 F 04/18/25 16:23 Pulse Rate 79 04/18/25 16:23 Respiratory Rate 18 04/18/25 16:23 Blood Pressure 147/100 H 04/18/25 16:23 Pulse Oximetry 98 04/18/25 16:23 Oxygen Delivery Method Room Air 04/18/25 16:23 Temperature 98.2 F 04/18/25 16:23 Pulse Rate 79 04/18/25 16:23 Respiratory Rate 18 04/18/25 16:23 Blood Pressure 147/100 H 04/18/25 16:23 Pulse Oximetry 98 04/18/25 16:23 Oxygen Delivery Method Room Air 04/18/25 16:23 MDM - Dental/Oral MDM Narrative Medical decision making narrative: A prescription was provided for amoxicillin. Follow up with a dentist for a recheck, further evaluation and treatment. Return to the ED for worsening symptoms. Differential Diagnosis Differential diagnosis: Likely gingival abscess, dental caries, toothache and dental abscess Medical Records Attestation: I reviewed the patient's medical records. Discharge Plan Discharge Chief Complaint: Dental/Oral Clinical Impression: Dental caries, Tooth ache Patient Disposition: Home, Self-Care Time of Disposition Decision: 16:33 Condition: Good Mode of Transportation: Private Vehicle Prescriptions / Home Meds: New amoxicillin 500 mg capsule 500 mg PO TID 10 Days Qty: 30 0RF No Action amoxicillin 500 mg capsule 500 mg PO TID 10 Days Qty: 30 0RF ketorolac 10 mg tablet 10 mg PO TID PRN (Reason: pain) Qty: 10 0RF Print Language: [place] Islander Instructions: Toothache (ED) Additional Instructions: Return to the ED for worsening symptoms. Follow up with your dentist. Referrals: Physician,Non-Staff, MD [Primary Care Provider] - 1 week Discharge Date/Time: 04/18/25 16:59
--- OUTSIDE RECORDS SUMMARY | 2025-04-18 17:13 | XMS_ITS | Clinical Summary ---
Author Organization [facility] Address [address] [place] [address] Care Team Providers Care Tunnel Kiln Repairer Name Role Phone Unavailable Primary Care Provider Unavailabl e Social History Tobacco UseTypesPacks/DayYears UsedDateSmoking Tobacco: Never AssessedSex and Gender InformationValueDate RecordedSex Assigned at BirthNot on fileLegal Sex Male03/24/2024 2:16 PM EDTGender IdentityNot on fileSexual OrientationNot on file Plan of Treatment Not on file
--- OUTSIDE RECORDS SUMMARY | 2025-04-18 17:13 | XMS_ITS | Clinical Summary ---
Author Organization [facility] Address [address], [address] [place] [address] Care Team Providers Care Cook Helper Dessert Name Role Phone Unavailable Primary Care Provider Unavailabl e Allergies No known active allergies Medications MedicationSigDispense QuantityRefillsLast FilledStart DateEnd DateStatus naproxen (NAPROSYN) 500 MG tablet Take 1 tablet by mouth 2 times daily for 10 days 20 tablet 5Active Encounters DateTypeDepartmentCare AbtcFjijjloproy12/15/2025 3:28 PM EDT - 01/21/2025 3:42 [facility] [address] [id number] Pain, dental (Primary Dx) Discharge Disposition: Home or Self Carefrom Last 3 Months Social History Tobacco UseTypesPacks/DayYears UsedDateSmoking Tobacco: Never AssessedSex and Gender InformationValueDate RecordedSex Assigned at BirthNot on fileLegal Sex Male07/19/2012 6:38 PM ESTGender IdentityNot on fileSexual OrientationNot on file Last Filed Vital Signs Vital SignReadingTime TakenCommentsBlood Rsrcverx221/8708 3:28 PM EDT Npyxo93844/15/2025 3:28 PM TIVMdjrwsjffpm00.8 ??C (98.2 ??F)01/21/2025 3:28 PM EDTRespiratory Ixuz763201/21/2025 3:28 PM EDTOxygen Lgmvdixdqc72%01/21/2025 3:28 PM EDTInhaled Oxygen Concentration--Fdtnmx37.7 kg (200 lb)01/21/2025 3:28 PM EDT Bgluum585.4 cm (6' 1 )01/21/2025 3:28 PM EDTBody Mass Index26.39001/21/2025 3:28 PM EDT Plan of Treatment Health MaintenanceDue DateLast DoneCommentsDTaP/Tdap/Td vaccine (1 - Tdap) 2008Flu vaccine (#1)01/07/2025OVID-19 Vaccine ( season) 2025Polio vaccineAged OutNo longer eligible based on patient's age to complete this topic
--- OUTSIDE RECORDS SUMMARY | 2025-04-18 17:16 | XMS_ITS | CCD ---
Author Organization [facility] Care Team Providers Care Compressed Gas Tester Name Role Phone DR JUDY SANCHEZ Primary Care Unavailable MARY ORLANDO Attending Unavailable MARY ORLANDO Consulting Unavailable MARY ORLANDO Admitting Unavailable CORINA PALACIOS Consulting Unavailable Unavailable Primary Care Provider Unavailabl e NO PCP, NO PCP Primary Care Unavailable NO PCP, NO PCP Primary Care Unavailable TOYA VEGA Attending Unavailable NO PCP, NO PCP Primary Care Unavailable ALEYDA THORNE JR Attending Unavailable Problems Problem ClassificationProblemDateDocumented DateEpisodic/Chronic Administrative/social admission (2 sources)Patient encounter status; Translations: [Encounter for blood-alcohol and blood-drug test]98-64-4438AiuhzpppNkpubcvnw of teeth and jaw (4 sources)Other specified disorders of teeth and supporting structures; 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]Onset: 55-24-2756NfdrdxdxNkdlhdcbxcj chest pain (3 sources)Chest pain, unspecified; Translations: [CHEST PAIN UNSPECIFIED]Onset: 77-34-8839NicsmujqWkhbo connective tissue disease (1 source)Hand painOnset: 43-01-0414SnhqegykMosga injuries and conditions due to external causes (1 source)Unspecified injury of right wrist, hand and finger(s), initial encounter; Translations: [Unspecified injury of right wrist, hand and finger(s), initial encounter]Onset: 02-85-8716VrzczcwxGmzkemrd; pneumothorax; pulmonary collapse (1 source)Pleurisy; Translations: [PLEURISY]Onset: 08-23-6016PhnpkhhiBdjlczhht- related disorders (1 source)Nicotine dependence, cigarettes, uncomplicated; Translations: [NICOTINE DEPEND CIGARETTES UNCOMP]Onset: 94-27-0639SuitdzbChidszlsdavm (1 source)CONTACT W/AND (SUSP) EXPOS COVID-19; Translations: [CONTACT W/AND (SUSP) EXPOS COVID-19]Onset: 68-87-2011Pgybxfmqifmf (1 source)Smashed Right HandOnset: 12-21-2024 Results Test NameValueInterpretationReference RangeFacilityXR HAND RT MIN 3 VWSon 55-00-4260RJ HAND RT MIN 3 VWSXR HAND RT MIN 3 VWS XR HAND RT MIN 3 VWS CLINICAL HISTORY: Second metacarpophalangeal joint pain. Smashing injury to the right hand COMPARISON: 11/08/2020 FINDINGS: 3 views are obtained. Soft tissues: Unremarkable. Osseous structures: No acute fracture. No destructive osseous lesion. Joints: No dislocation or malalignment. IMPRESSION: * No acute fracture or malalignment. Finalized by Alberto Khan MD on 12/21/2024 3:22 PMNormalProMedica Hollywood Presbyterian Medical CenterCARDIAC NAZARIO 3-6on 18-38-1084HD [Catalytic activity/Vol]79 U/LNormal 39-308[facility] HospitalComment on above:Performed By: #### CMREP #### [facility] [address] [place] [address] Dr. Samreen Raymundo.MB [Mass/Vol]0.51 ng/mLNormal<=3.60[facility] Comment on above:Performed By: #### CMREP #### [facility] [address] [place] [address] Dr. Samreen UrbanTROP4.5 pg/mLNormal4.0-76.1[facility] HospitalComment on above:Result Comment: CUT-OFF POINTS HAVE BEEN ESTABLISHED BASED ON THE FOURTH UNIVERSAL DEFINITIONS OF MYOCARDIAL INFARCTION. THE UPPER REFERENCE LIMIT (URL) OF TROPONIN, DEFINED THE 99TH PERCENTILE OF cTnI DISTRIBUTION IN A REFERENCE POPULATION, HAS BEEN CONFIRMED THE DECISION THRESHOLD FOR HI DIAGNOSIS.Performed By: #### CMREP #### [facility] [address] [place] [address] Dr. Samreen LANGE ADMITon 66-15-0733TU [Catalytic activity/Vol]85 U/L Zraxlw65-698W[facility] HospitalComment on above:Performed By: #### CMADM, BMP #### [facility] [address] [place] [address] Dr. Samreen Raymundo.MB [Mass/Vol]0.57 ng/mLNormal<=3.60[facility] Comment on above:Performed By: #### CMADM, BMP #### [facility] [address] [place] [address] Dr. Samreen VoHSTROP<4.0Kfrqcb5.0-76.1The [facility] HospitalComment on above: Result Comment: CUT-OFF POINTS HAVE BEEN ESTABLISHED BASED ON THE FOURTH UNIVERSAL DEFINITIONS OF MYOCARDIAL INFARCTION. THE UPPER REFERENCE LIMIT (URL) OF TROPONIN, DEFINED THE 99TH PERCENTILE OF cTnI DISTRIBUTION IN A REFERENCE POPULATION, HAS BEEN CONFIRMED THE DECISION THRESHOLD FOR HI DIAGNOSIS.Performed By: #### CMADM, BMP #### [facility] [address] [place] [address] Dr. Samreen CarreonO24 ng/jLCpsenu80-31Jkb [facility] HospitalComment on above: Performed By: #### CMADM, BMP #### [facility] [address] [place] [address] Dr. Samreen Leon AUTO DIFFon 22-22-5234AQRQ #0.0 103/ulNormal0.0-0.1The [facility] HospitalComment on above:Performed By: #### CBC #### [facility] [address] [place] [address] Dr. Samreen VoBasophils/100 WBC (Bld)0.5 %Normal0.2-2.0[facility] Comment on above:Performed By: #### CBC #### [facility] [address] [place] [address] Dr. Samreen Castillo #0.3 103/ulNormal0.0-0.7The [facility] HospitalComment on above: Performed By: #### CBC #### [facility] [address] [place] [address] Dr. Samreen Postosinophils/100 WBC (Bld)4.0 %Normal0.9-7.0The [facility] Comment on above:Performed By: #### CBC #### [facility] [address] [place] [address] Dr. Samreen Postrythrocyte distribution width (RBC) [Ratio]13.1 %Mcoufv50.0-15.0 [facility] HospitalComment on above:Performed By: #### CBC #### [facility] [address] [place] [address] Dr. Samreen VoHematocrit (Bld) [Volume fraction]38.8 %Critically low42.0-54.0 The [facility] HospitalComment on above:Performed By: #### CBC #### [facility] [address] [place] [address] Dr. Samreen VoHemoglobin (Bld) [Mass/Vol]13.2 g/dLCritically low14.0-18.0The [facility] HospitalComment on above:Performed By: #### CBC #### [facility] [address] [place] [address] Dr. Samreen Rodriguez #0.02 10e3/ulNormal0.00-0.03The [facility] HospitalComment on above:Performed By: #### CBC #### [facility] [address] [place] [address] Dr. Samreen Rodriguez %0.2 %Normal0.0-0.5The [facility] HospitalComment on above: Performed By: #### CBC #### [facility] [address] [place] [address] Dr. Samreen Barrett #2.4 103/ulNormal1.2-3.8The [facility] HospitalComment on above:Performed By: #### CBC #### [facility] [address] [place] [address] Dr. Samreen Wheelerhocytes/100 WBC (Bld)29.2 %Jgkpap10.5-60.0The [facility] HospitalComment on above:Performed By: #### CBC #### [facility] [address] [place] [address] Dr. Samreen GradyUAL DIFF REQNONormalThe [facility] HospitalComment on above: Performed By: #### CBC #### [facility] [address] [address] [address] Samreen Snyder (RBC) [Entitic mass]31.6 sxRpabmb16.9-34.0The [facility] HospitalComment on above:Performed By: #### CBC #### [facility] [address] [place] [address] Dr. Samreen Snyder (RBC) [Mass/Vol]34.0 g/dWCwtwij32.9-35.2The [facility] HospitalComment on above:Performed By: #### CBC #### [facility] [address] [place] [address] Dr. Samreen Echevarria (RBC) [Entitic vol]92.8 bZTdxayp24.0-94.0The [facility] HospitalComment on above:Performed By: #### CBC #### [facility] [address] [place] [address] Dr. Samreen Belcher #0.9 103/ulCritically high0.3-0.8The [facility] Comment on above:Performed By: #### CBC #### [facility] [address] [place] [address] Dr. Samreen Boswellocytes/100 WBC (Bld)10.9 %Normal1.7-12.0[facility] Comment on above:Performed By: #### CBC #### [facility] [address] [place] [address] Dr. Samreen Rosenthal #4.5 103/ulNormal1.4-6.5The [facility] HospitalComment on above:Performed By: #### CBC #### [facility] [address] [place] [address] Dr. Samreen Rodriguezutrophils/100 WBC (Bld)55.2 %Ptbwtn40.0-75.0The [facility] HospitalComment on above:Performed By: #### CBC #### [facility] [address] [place] [address] Dr. Samreen Mclaughlinlet mean volume (Bld) [Entitic vol]11.5 fLNormal9.5-13.5The [facility] HospitalComment on above:Performed By: #### CBC #### [facility] [address] [place] [address] Dr. Samreen VoPLT179 103/ouCgkpff304-982Zpa [facility] HospitalComment on above: Performed By: #### CBC #### [facility] [address] [place] [address] Dr. Samreen VoRBC4.18 106/ulCritically low4.70-6.10The [facility] HospitalComment on above:Performed By: #### CBC #### [facility] [address] [place] [address] Dr. Samreen VoWBC8.1 103/ulNormal4.0-11.0The [facility] HospitalComment on above: Performed By: #### CBC #### [facility] [address] [place] [address] Dr. Samreen VoCovid-19 PCR ([facility])on 30-06-0923NIFQ-CoV-2 (COVID-19) RNA GABI+probe Ql (Unsp spec)Not detectedNormalNOT DETECTEDThe [facility] Comment on above:Result Comment: This test is not yet approved or cleared by the [place] FDA. When there are no FDA-approved or cleared tests available, and other criteria are met, FDA can make tests available under an emergency access mechanism called an Emergency Use Authorization (EUA). The EUA for this test is supported by the [employer] of Health and Human Service's (HHS's) declaration that circumstances exist to justify the emergency use of in vitro diagnostics for the detection and/or diagnosis of the virus that causes COVID- 19. This EUA will remain in effect (meaning [...] of clinical signs and symptoms consistent with SARS-CoV-2.Performed By: #### CVDTBH #### [facility] [address] [place] [address] Dr. Samreen GilesDIMERon 31-66-8832A-DIMER<0.19Normal<=0.59[facility] Comment on above:Performed By: #### DDIM #### [facility] [address] [place] [address] Dr. Samreen Sadler COMMENTSSEE [facility] on above:Result Comment: Increases in D-Dimer concentration observed with thromboembolic events [...] stress, and generalized hospitalization. Performed By: #### DDIM #### [facility] [address] [place] [address] Dr. Samreen Kelsey A AND B AGon 81-85-3881FCYRWIAQJQERUAultman Hospital on above:Result Comment: Negative for Flu A protein angiten. Infection due to Flu A cannot be ruled out. FluA angiten in the sample may be below the detection limit of the test.Performed By: #### RSV, INFLUAB #### [facility] [address] [place] [address] Dr. Samreen VoINFLUBNEGHSEE [facility] on above: Result Comment: Negative for Flu B protein antigen. Infection due to Flu B cannot be ruled out. FluB antigen in the sample may be below the detection limit of the test.Performed By: #### RSV, INFLUAB #### [facility] [address] [place] [address] Dr. Samreen Templeton AGNegativeNormalNEGATIVE SEE COMMENTThe [facility] on above:Performed By: #### RSV, INFLUAB #### [facility] [address] [address] [address] Samreen Barnard AGNegativeNormalNEGATIVE SEE COMMENTThe [facility] HospitalComment on above:Performed By: #### RSV, INFLUAB #### [facility] [address] [address] [address] Samreen VoINTERNAL CONTROLSWithin Normal LimitsNormalWithin Normal Limits The [facility] HospitalComment on above:Performed By: #### RSV, INFLUAB #### [facility] [address] [address] [address] Samreen VoPROF CHEM 8 (BAS METB)on 82-57-8526Fzaoq gap [Moles/Vol]11.8 mmol/LNormalThe [facility] HospitalComment on above:Performed By: #### CMADM, BMP #### [facility] [address] [place] [address] Dr. Samreen VoCalcium [Mass/Vol]8.8 mg/dLNormal8.5-10.1The [facility] Comment on above:Performed By: #### CMADM, BMP #### [facility] [address] [place] [address] Dr. Samreen VoChloride [Moles/Vol]102 mmol/CLpovin74-260Ols [facility] Comment on above:Performed By: #### CMADM, BMP #### [facility] [address] [place] [address] Dr. Samreen VoCO2 [Moles/Vol]29.3 mmol/TVemetm54.0-32.0The [facility] Comment on above:Performed By: #### CMADM, BMP #### [facility] [address] [place] [address] Dr. Samreen VoCreatinine [Mass/Vol]0.69 mg/dLCritically low0.70-1.30The [facility] HospitalComment on above:Performed By: #### CMADM, BMP #### [facility] [address] [place] [address] Dr. Jolley ChangEGFR-AF ENGLISH>60Normal>=60The [facility] HospitalComment on above:Performed By: #### CMADM, BMP #### [facility] [address] [address] [address] Samreen PostGFR-NON AF ENGLISH>60Normal>=60The [facility] HospitalComment on above:Performed By: #### CMADM, BMP #### [facility] [address] [address] [address] Samreen VoGlucose [Mass/Vol]96 mg/qRWnobpy77-467HntMercy Health Allen Hospital Comment on above:Performed By: #### CMADM, BMP #### [facility] [address] [address] [address] Samreen VoPotassium [Moles/Vol]4.1 mmol/LNormal3.5-5.1[facility] Comment on above:Performed By: #### CMADM, BMP #### [facility] [address] [address] [address] Samreen VoSodium [Moles/Vol]139 mmol/PPgfcro239-180IntMercy Health Allen Hospital Comment on above:Performed By: #### CMADM, BMP #### [facility] [address] [address] [address] Samreen VoUrea nitrogen [Mass/Vol]12.0 mg/dLNormal7.0-18.0[facility] HospitalComment on above:Performed By: #### CMADM, BMP #### [facility] [address] [address] [address] Samreen Schwartz nitrogen/Creatinine [Mass ratio]17.4 mg/mgNormalThe [facility] HospitalComment on above:Performed By: #### CMADM, BMP #### [facility] [address] [address] [address] Samreen Levine 28-50-8167DHB AGNegativeNormalNEGATIVEMercy Health Allen Hospital Comment on above:Performed By: #### RSV, INFLUAB #### [facility] [address] [address] [address] Samreen VoXR CHEST 1 Von 66-48-0502VP CHEST 1 VEXAM: XR CHEST 1 V HISTORY: CHEST PAIN, [...] Electronically authenticated by: CORINA PALACIOS Date: 2022-05-23 01:04[facility] Encounters Encounter DateEncounter TypeCare ProviderFacilityStart: 02-02-2025 End: 85-50-7956Qopebbmok department patient visitNO PCP NO PCPProMedica Penns Grove HospitalStart: 01-21-2025 End: 84-81-2757Aspsukcom department patient visitMerParkwood Hospital HospitalStart: 01-14-2025 End: 95-87-3572Uddwfigfj department patient visitNO PCP NO PCPProMedica Penns Grove HospitalStart: 12-21-2024 End: 40-40-9776Hvxeqsupj department patient visitNO PCP NO PCPProMedica Penns Grove HospitalStart: 03-24-2024 End: 12-37-1697ivjenxmjwgCip AvailableStart: 03-24-2024 End: 49-33-3639Zkawftg encounter procedureAnthtania Carl DO Work Phone: [facility] UCComment on above:Encounter for drug screeningStart: 05-23-2022 End: 73-54-2014canmoeawaeXJ DOCTOR MISCFacility:H1 Payers DatePayer CategoryPayerPolicy [id number] [id number] [id number] Social History DateTypeDetailFacilityTobacco smoking status NHISTobacco smoking consumption unknownNOAZ HealthcareStart: 22-92-2372Kaj assigned at birthNot on fileNOMS HealthcareGender identityNot on fileNOAZ Healthcare History of Present illness Narrative 03-24-2024 Note Date & YuhlDqwmKzrspplm58-02-4968 History of Present illness Narrative* Zaira Limon LPN - 03/24/2024 2:20 PM EDT Pt presents today for a pre-employment drug screen for [employer]. Pt verified by photo ID. documented in this encounterNOAZ Healthcare Evaluation note Note Date & TypeNoteFacilityEvaluation note* Diagnosis Encounter for drug screening documented in [...] and content) DATE CREATED AUTHOR 05/30/2022 [facility] DATE CREATED AUTHOR AUTHOR'S ORGANIZ ATION 03/27/2024 [facility] DATE CREATED AUTHOR AUTHOR'S ORGANIZ ATION 01/23/2025 [facility] DATE CREATED AUTHOR AUTHOR'S ORGANIZ ATION 02/04/2025 [facility] FOR RECORDS PERTAINING TO PATIENTS WHO ARE [...] BE BASED ON THE PRIMARY CLINICAL RECORDS. [employer] provides no warranty or guarantee of the accuracy or completeness of information in this document.
== END 2025-04-18 16:59 | disposition home or self-care (01) ==
LOC: ER 17:10
PROVIDERS: Emergency Provider Student in an Organized Health Care Education/Training Program
DX: K02.9 Dental caries, unspecified (principal); K08.89 Other specified disorders of teeth and supporting structures; F17.200 Nicotine dependence, unspecified, uncomplicated
CPT/HCPCS: 99283

== ENCOUNTER 2025-05-11 20:19 | Emergency (ER) | payer SELFPAY ==
[2025-05-11 20:27] VITALS: BP 110/64; PULSE 95; TEMP 37.2; O2SAT 98; BMI 26.4
[2025-05-11 21:07] LABS: SARS-CoV-2 Ag POSITIVE (NEGATIVE)
--- OUTSIDE RECORDS SUMMARY | 2025-05-11 21:33 | XMS_ITS | Clinical Summary ---
Author Organization [facility] Address [address] [facility] [place] [address] Care Team Providers Care Tutorial Laboratory Supervisor Name Role Phone Unavailable Primary Care Provider Unavailabl e Social History Tobacco UseTypesPacks/DayYears UsedDateSmoking Tobacco: Never AssessedSex and Gender InformationValueDate RecordedSex Assigned at BirthNot on fileLegal Sex Male03/24/2024 2:16 PM EDTGender IdentityNot on fileSexual OrientationNot on file Plan of Treatment Not on file
--- OUTSIDE RECORDS SUMMARY | 2025-05-11 21:33 | XMS_ITS | Clinical Summary ---
Author Organization [employer] [facility] Address [id number] [address] [place] [address] Care Team Prov[address] Care Court Deputy Name Role Phone No Pcp, No Pcp Primary Care Provider Unavailabl e Allergies No known active allergies Medications MedicationSigDispense QuantityRefillsLast FilledStart DateEnd DateStatus benzonatate (TESSALON PERLES) 100 mg capsule Take 1 capsule (100 mg total) by mouth every 8 (eight) hours. 21 capsule 05/27/2022ctive Additional Information Patient not taking.Reported on 12/21/2024 loratadine-pseudoephedrine (CLARITIN-D 12 hour) 5-120 mg tablet extended release 12 hr Take 1 tablet by mouth every 12 (twelve) hours as needed (nasal congestion). 12 tablet 10/03/2023ctive Additional Information Patient not taking.Reported on 12/21/2024 ondansetron ODT (ZOFRAN ODT) 4 mg disintegrating tablet Dissolve 1 tablet (4 mg total) on tongue every 8 (eight) hours as needed for nausea for up to 10 doses. 10 tablet 4Active Additional Information Patient not taking.Reported on 12/21/2024 ketorolac (TORADOL) 10 mg tablet Take 1 tablet (10 mg total) by mouth every 6 (six) hours as needed for pain. 20 tablet 5Active benzocaine (ORAJEL) 10 % mucosal gel Apply 1 Application to the mouth or throat as needed for mucositis. 5.3 g 5Active Family History Medical HistoryRelationNameCommentsHeart diseaseFatherCancerMotherDiabetesMother RelationNameStatusCommentsFatherMother Social History Tobacco UseTypesPacks/DayYears UsedDateSmoking Tobacco: Every DaySmokeless Tobacco: NeverAlcohol UseStandard Drinks/WeekCommentsYes0 (1 standard drink = 0.6 oz pure alcohol)occassionalChildcareAnswerDate RecordedChildcareUnknown 11/18/2018EmploymentAnswerDate OfiadbjuNigglsquzmTqmeiyi76/12/2019Hunger ScreeningAnswerDate RecordedWithin the past 12 months we worried whether our food would run out before we got money to buy more.Never True02/02/2025Within the past 12 months the food we bought just didn't last and we didn't have money to get more.Never True02/02/2025Purpose - LifeAnswerDate RecordedPurpose and direction in lpjvUipxjdc89/11/2021ex and Gender InformationValueDate Recorded Sex Assigned at BirthNot on fileLegal DojRvjt2701/12/2015 11:43 AM EDTGender IdentityNot on fileSexual OrientationNot on file Last Filed Vital Signs Vital SignReadingTime TakenCommentsBlood Ymovdant685/90002/02/2025 5:27 PM EDT Zgjdv888602/02/2025 5:27 PM MCZNdicimkstxp62.6 ??C (97.8 ??F)02/02/2025 3:41 PM EDTRespiratory Bnlk219602/02/2025 5:27 PM EDTOxygen Rkxcbzhvau82%02/02/2025 5:27 PM EDTInhaled Oxygen Concentration--Ivxprh64.5 kg (195 lb)02/02/2025 3:41 PM EDT Ycixal614.4 cm (6' 1 )02/02/2025 3:41 PM EDTBody Mass Index25.7302/02/2025 3:41 PM EDT Plan of Treatment Health MaintenanceDue DateLast DoneCommentsTobacco Gluiexkaib90/08/1990 Depression Lwbkswuvp00/08/2002Adult BMI Follow Up Plan12/15/2007DTaP,Tdap and Td Vaccines (1 - Tdap)2008Influenza Ylejdxo4502/07/2025Tobacco Screening dult BMI Bwiulyper98 [employer] Not on file Care Teams Team MemberRelationshipSpecialtyStart DateEnd Date No Pcp, [place] [address] [facility] - [facility]12/21/24
--- NOTE | 2025-05-11 21:36 | ED.URI1 ---
HPI - URI/Sore Throat General Chief Complaint: Upper Respiratory Infection Stated Complaint: RUNNY NOSE, BODY HURTS, COLD CHILLS, SORE THROAT Time Seen by Provider: 05/11/25 21:22 Source: patient Limitations: no limitations History of Present Illness HPI Narrative: This 34-year-old male presents for evaluation of bodyaches, sore throat and runny nose. Patient states that on Friday he woke up to go deer hunting but did not feel well enough to go and went back to bed. Then yesterday he started having a sore throat nasal congestion and worsening body aches. He is not having any nausea vomiting or diarrhea. He is not have any chest pain or shortness of breath. He has not been vaccinated against COVID-19. Related Data Home Medications ?Medication ?Instructions ?Recorded ?Confirmed No Known Home Medications 05/11/25 05/11/25 Allergies Allergy/AdvReac Type Severity Reaction Status Date / Time No Known Drug Allergies Allergy Verified 05/11/25 20:31 Review of Systems ROS Status of ROS 10 or more systems reviewed and unremarkable except as noted in history and below [facility] Social History Smoking status: Current every day smoker Little interest or pleasure in doing things: not at all Feeling down, depressed, or hopeless: not at all Exam Narrative Exam Narrative: Vital signs and Nursing Notes reviewed: Patient is afebrile with a normal pulse, normal blood pressure, he is not hypoxic with pulse ox of 98% on room air General: Awake, alert, oriented, no acute distress, lying comfortably on the stretcher-speaking in complete sentences, no respiratory difficulty HEENT: Normocephalic atraumatic, mucous membranes are moist and pink, eyes are clear, normal conjunctiva, vision is grossly intact, posterior pharynx is normal in appearance. Multiple missing teeth -no sign of necrotizing gingivitis Neck: Supple, no meningeal signs, no anterior or posterior cervical lymphadenopathy Chest: Lungs are clear but diminished, no wheezing rhonchi or rales appreciated, patient is speaking in complete sentences and is not hypoxic with pulse ox of 98% on room air CVS: Regular rate and rhythm S1-S2, no murmurs rubs or gallops, pulses are brisk and equal bilaterally Extremities: Moving all extremities Skin: Normal in appearance without rash,pallor, petechiae or purpura Neuro: No focal deficits Constitutional Vital Signs, click to edit/add: Last Vital Signs Temp 98.9 F 05/11/25 20:27 Pulse 95 H 05/11/25 20:27 Resp 14 05/11/25 20:27 BP 110/64 05/11/25 20:27 Pulse Ox 98 05/11/25 20:27 O2 Del Method Room Air 05/11/25 20:27 Course Vital Signs Vital signs: Vital Signs Temperature 98.9 F 05/11/25 20:27 Pulse Rate 95 H 05/11/25 20:27 Respiratory Rate 14 05/11/25 20:27 Blood Pressure 110/64 05/11/25 20:27 Pulse Oximetry 98 05/11/25 20:27 Oxygen Delivery Method Room Air 05/11/25 20:27 Temperature 98.9 F 05/11/25 20:27 Pulse Rate 95 H 05/11/25 20:27 Respiratory Rate 14 05/11/25 20:27 Blood Pressure 110/64 05/11/25 20:27 Pulse Oximetry 98 05/11/25 20:27 Oxygen Delivery Method Room Air 05/11/25 20:27 MDM - URI/Sore Throat MDM Narrative Medical decision making narrative: 34-year-old male presents for evaluation of chills, sore throat, nasal congestion and bodyaches. His lungs are clear, vital signs are stable. He has not taken any medications. He is negative for strep and influenza and positive for COVID-19. He did not go to work on Friday or Friday or Friday and request a note for work. He will be given a note for work until next Friday as he does not work over the weekend. He was medicated emergency department with a dose of Tylenol and ibuprofen and discharged home with prescription for ibuprofen to use as needed for chills and bodyaches. He is otherwise stable for discharge. Lab Data Attestation: I reviewed the patient's lab results. Labs: Lab Results 05/11/25 Range/Units 20:30 Influenza Type A Ag Negative Influenza Type B Ag Negative SARS-CoV-2 Ag (CV2AG) Positive A (NEGATIVE) Streptococcus Screen Negative Discharge Plan Discharge Chief Complaint: Upper Respiratory Infection Clinical Impression: Upper respiratory infection, COVID-19 Patient Disposition: Home, Self-Care Time of Disposition Decision: 21:35 Condition: Good Prescriptions / Home Meds: No Action No Known Home Medications Print Language: Angolan Instructions: Droplet Precautions (ED), COVID-19 (Coronavirus Disease 2019) (ED), Face Coverings (Masks) and COVID-19 (ED) Referrals: Physician,Non-Staff, MD [Primary Care Provider] - 1 week
[2025-05-11] MEDS: ACETAMINOPHEN 325 MG TABLET 650 MG PO (21:41)
[2025-05-11] MEDS: IBUPROFEN 600 MG TABLET PO (21:42)
== END 2025-05-11 21:43 | disposition home or self-care (01) ==
PROVIDERS: Emergency Provider Emergency Medicine
DX: U07.1 COVID-19 (principal); J06.9 Acute upper respiratory infection, unspecified; F17.200 Nicotine dependence, unspecified, uncomplicated
CPT/HCPCS: 87070; 87804; 87811; 87880; 99285